=== PATIENT | male | born 1935 | race Caucasian/White ===

== ENCOUNTER 2017-03-02 15:23 | Observation (INO) ==
[2017-03-02] MEDS ORDERED: Nitroglycerin 0.4 MG TAB.SUBL SL ONE (15:58)
[2017-03-02] MEDS ORDERED: Aspirin 81 MG TAB.CHEW PO ONE (15:58)
--- NOTE | 2017-03-02 16:04 | Emergency Department Note ---
Disposition Clinical Impression: Chest pain, Elevated blood pressure reading with diagnosis of hypertension Disposition: Admitted As Inpatient Condition: Fair Referrals: Mark Harkins MD [Primary Care Provider] - Forms: ED Satisfaction Letter Chest Pain HPI - General Chief Complaint: ED Chest Pain Stated Complaint: CP/SOB Time Seen by Provider: 03/02/17 15:35 Source: patient Mode of arrival: ambulatory Limitations: no limitations Vital Signs Reviewed: Yes Nursing Notes Reviewed: Yes - History of Present Illness HPI Narrative: Patient is an 81-year-old white male with history of hypertension and hyperlipidemia who presents to the emergency room today with intermittent episodes of chest pain that began this morning at 8 AM. Patient complains of substernal pain that he describes like a pressure sensation that began this morning at 8 AM and has been waxing and waning throughout the day with no aggravating or alleviating factors that the patient can pinpoint. Patient states that pain is nonradiating, rating it as a 7 out of 10 in severity at this time associated with mild nausea and he experienced diaphoresis throughout the day with these episodes at home prior to arrival. Patient having no diaphoresis on presentation. Patient states that he feels nauseous and bloated in his abdomen is not having any abdominal or flank pain. Patient denies any fevers or chills, no recent upper respiratory symptoms cough or sore throat, no vomiting associated with nausea. Patient denies any bowel changes. Patient denies any lightheadedness or syncopal episodes prior to arrival. Patient states he has never had a heart attack in the past, has had a remote stress test and does not recall as to why it was done but thinks it was normal at the time and has had no further cardiac testing in the past. Patient at this time appears mildly anxious in regards to the symptoms, and concerned about the ongoing symptoms he has had throughout today. Patient thinks that the most recent episode that he has had which he feels currently started approximately 4 PM. Severity scale (1-10): 7 - Related Data Home Medications Medication Instructions Recorded Confirmed Aspirin Enteric Coated [Aspirin EC] 81 mg PO DAILY 03/02/17 03/02/17 Lisinopril/Hydrochlorothiazide 1 each PO DAILY 03/02/17 03/02/17 [Zestoretic 10-12.5 mg Tablet] Meloxicam [Mobic] 15 mg PO DAILY 03/02/17 03/02/17 Zolpidem [Ambien] 10 mg PO HS 03/02/17 03/02/17 Allergies Allergy/AdvReac Type Severity Reaction Status Date / Time No Known Allergies Allergy Verified 03/02/17 15:26 All systems ED: reviewed and negative except as stated. Constitutional: Denies: fever, chills Eyes: Denies: vision change ENT ED: Denies: throat pain Cardiovascular: Reports: chest pain (Substernal and nonradiating). Denies: palpitations, dyspnea on exertion, orthopnea, edema, syncope, paroxysmal nocturnal dyspnea Respiratory: Denies: cough, wheezes, hemoptysis, stridor, sputum production Gastrointestinal: Reports: nausea. Denies: abdominal pain, vomiting, diarrhea, hematemesis Genitourinary: Denies: urgency, dysuria, frequency Musculoskeletal: Denies: back pain, neck pain, arthralgia, myalgia Integumentary: Denies: rash Neurological: Denies: headache, weakness, numbness, paresthesias, abnormal gait Psychiatric: Denies: anxiety, depression Hematological/Lymphatic: Denies: easy bleeding, easy bruising Chest Pain PMH - Past Medical History Medical history: Reports: hyperlipidemia, hypertension Psychiatric history: Reports: panic disorder - Social History Smoking Status: Never smoker Alcohol use: Reports: none Drug use: Reports: none Physical Exam - General Limitations: no limitations General appearance: alert, in no apparent distress, other (mildly anxious) - Head Head exam: atraumatic, normocephalic - Eye Eye exam: Present: normal appearance, PERRL, EOMI - ENT ENT exam: normal exam, normal oropharynx, mucous membranes moist - Neck Neck exam: Present: normal inspection, full ROM. Absent: lymphadenopathy - Chest Chest inspection: Present: normal inspection, symmetric chest wall rise. Absent : tenderness - Respiratory Respiratory exam: Present: normal lung sounds bilaterally. Absent: respiratory distress, wheezes, stridor, prolonged expiratory phase - Cardiovascular Cardiovascular exam: Present: regular rate, normal rhythm, normal heart sounds - Abdominal Exam Abdominal exam: Present: soft, Non-Tender, normal bowel sounds. Absent: distention, guarding, rebound, rigidity - Rectal Exam Rectal exam: Present: deferred - Extremities Exam Extremities exam: Present: normal inspection, full ROM, normal capillary refill. Absent: tenderness, pedal edema - Back Exam Back exam: Present: normal inspection. Absent: tenderness, CVA tenderness (R), CVA tenderness (L) - Neurological Exam Neurological exam: Present: alert, oriented X3, CN II-XII intact, reflexes normal - Psychiatric Psychiatric exam: Present: normal affect, normal mood - Skin Skin exam: Present: warm, dry, normal color. Absent: cyanosis, diaphoresis Course Course Narrative: An 81-year-old white male who presents to the emergency department with substernal chest pressure radiating in a 7 out of 10 in severity associated with nausea. Patient's initial EKG showed a normal sinus rhythm with no acute ST-T wave changes. Currently obtaining IV including labs, portal chest x-ray, placed the patient on continuous cardiac monitoring and continuous pulse ox and will initiate aspirin and nitroglycerin here for pain and monitor blood pressure closely. He should at bedside has no signs of acute distress, no respiratory distress and vital signs are stable with the exception of some elevation in his blood pressure. Patient states he has been taking his blood pressure medication at home as prescribed. - Reevaluation(s) Reevaluation #1: On reevaluation following nitroglycerin trial and aspirin, patient is pain-free at this time. Patient denies any further pressure-like sensation to the substernal area of his chest. Blood pressure significantly improved is 135/101 on my reassessment. Patient resting comfortably. Awaiting remainder of labs at this time. I did discuss with the patient that more than likely we would be admitting him for further evaluation of chest pain as well as elevated blood pressure. Time: 16:57 Reevaluation #2: Family discussed with hospitalist at 1753, who accepted the patient for admission for further evaluation patient remains stable and vital signs are stable at this time resting comfortably and is chest pain-free. Chest X-Ray 03/02/17 15:58 IMPRESSION: Nodular density in the right upper lung. This would be better evaluated with CT of the chest D/ / Gifty Quinn MD / Gifty Quinn MD Interpreting Provider: Gifty Quinn MD Time: 17:54 Vital Signs Temperature 97.7 F 03/02/17 15:26 Pulse Rate 100 03/02/17 15:26 Respiratory Rate 16 03/02/17 15:26 Blood Pressure 188/123 03/02/17 15:26 O2 Sat by Pulse Oximetry 96 03/02/17 15:26 Temperature 97.7 F 03/02/17 15:26 Pulse Rate 68 03/02/17 17:15 Respiratory Rate 14 03/02/17 17:15 Blood Pressure 139/96 03/02/17 17:15 O2 Sat by Pulse Oximetry 98 03/02/17 17:15 Oxygen Delivery Oxygen Delivery Room Air Chest Pain - Medical Records Medical records reviewed: Yes I reviewed the patient's medical records. - Lab Data Lab results reviewed: Yes I reviewed the patient's lab results. Result diagrams: 03/02/17 16:20 03/02/17 16:20 Lab Results 03/02/17 03/02/17 03/02/17 Range/Units 16:20 16:20 16:20 WBC 5.1 (4.3-11.1) K/mcL RBC 4.39 (4.19-5.50) M/mcL Hgb 13.3 (12.9-16.9) g/dL Hct 38.4 (37.5-50.1) % MCV 87.5 (83.0-100.0) fL MCH 30.3 (28.0-33.3) pg MCHC 34.6 (31.6-35.5) g/dL RDW 13.2 (11.5-14.5) % Plt Count 210 (140-400) K/mcL MPV 9.7 (9.4-12.4) fL Immature Gran % 0.2 (0-4) % Seg Neutrophils % 62.0 % Lymphocytes % 28.6 % Monocytes % 7.6 % Eosinophils % 1.2 % Basophils % 0.4 % Neutrophils # 3.2 (1.6-8.9) K/mcL Lymphocytes # 1.5 (0.6-4.6) K/mcL Monocytes # 0.4 (0.0-1.3) K/mcL Eosinophils # 0.1 (0.0-0.6) K/mcL Basophils # 0.0 (0.0-0.2) K/mcL PT 11.1 (9.4-12.1) Seconds INR 1.0 APTT 29.3 (26.0-36.0) Seconds Sodium (136-145) mEq/L Potassium (3.5-4.5) mEq/L Chloride (98-109) mEq/L Carbon Dioxide (19-29) mEq/L BUN (8-26) mg/dL Creatinine (0.72-1.25) mg/dL Est GFR ( Amer) (> 60) Est GFR (Non-Af Amer) (> 60) BUN/Creatinine Ratio (6-26) Glucose (70-99) mg/dL Calculated Osmolality (280-300) Calcium (8.6-10.8) mg/dL Total Bilirubin (0.2-1.2) mg/dL Direct Bilirubin (0.0-0.5) mg/dL Indirect Bilirubin (0.0-1.2) mg/dL AST (5-34) Units/L ALT (0-55) Units/L Alkaline Phosphatase (38-126) Units/L Troponin I (0-0.03) ng/mL B-Natriuretic Peptide 35 (0-100) pg/mL Serum Total Protein (6.0-8.3) g/dL Albumin (3.5-5.0) g/dL Globulin (2.4-3.5) g/dL Albumin/Globulin Ratio (1.1-2.2) Lipase (8-78) Units/L 03/02/17 03/02/17 Range/Units 16:20 16:20 WBC (4.3-11.1) K/mcL RBC (4.19-5.50) M/mcL Hgb (12.9-16.9) g/dL Hct (37.5-50.1) % MCV (83.0-100.0) fL MCH (28.0-33.3) pg MCHC (31.6-35.5) g/dL RDW (11.5-14.5) % Plt Count (140-400) K/mcL MPV (9.4-12.4) fL Immature Gran % (0-4) % Seg Neutrophils % % Lymphocytes % % Monocytes % % Eosinophils % % Basophils % % Neutrophils # (1.6-8.9) K/mcL Lymphocytes # (0.6-4.6) K/mcL Monocytes # (0.0-1.3) K/mcL Eosinophils # (0.0-0.6) K/mcL Basophils # (0.0-0.2) K/mcL PT (9.4-12.1) Seconds INR APTT (26.0-36.0) Seconds Sodium 139 (136-145) mEq/L Potassium 3.5 (3.5-4.5) mEq/L Chloride 108 (98-109) mEq/L Carbon Dioxide 25 (19-29) mEq/L BUN 22 (8-26) mg/dL Creatinine 1.23 (0.72-1.25) mg/dL Est GFR ( Amer) > 60 (> 60) Est GFR (Non-Af Amer) 57 L (> 60) BUN/Creatinine Ratio 18 (6-26) Glucose 110 H (70-99) mg/dL Calculated Osmolality 292 (280-300) Calcium 9.3 (8.6-10.8) mg/dL Total Bilirubin 0.6 (0.2-1.2) mg/dL Direct Bilirubin 0.2 (0.0-0.5) mg/dL Indirect Bilirubin 0.4 (0.0-1.2) mg/dL AST 18 (5-34) Units/L ALT 15 (0-55) Units/L Alkaline Phosphatase 82 (38-126) Units/L Troponin I 0.00 (0-0.03) ng/mL B-Natriuretic Peptide (0-100) pg/mL Serum Total Protein 7.5 (6.0-8.3) g/dL Albumin 3.8 (3.5-5.0) g/dL Globulin 3.7 H (2.4-3.5) g/dL Albumin/Globulin Ratio 1.0 L (1.1-2.2) Lipase 22 (8-78) Units/L - Radiology Data Radiology results reviewed: Yes I reviewed the patient's radiology results. - EKG Data EKG attestation: Yes I reviewed and interpreted this EKG. EKG results narrative: Patient's EKG was interpreted by myself without benefit of formal cardiology interpretation showing a normal sinus rhythm at [address] or T-wave changes are appreciated patient with some nonspecific T-wave flattening noted in V6 otherwise within normal limits. Heart Score - Score History: Moderately Suspicious EKG: Non Specific repolarisation Disturbance Age: Greater than 65 Risk Factors: 1-2 risk factors Troponin: Less than normal limit HEART Score Total: 5
[2017-03-02] MEDS: 0.9 % Sodium Chloride 1,000 ML IVC SCH (16:34)
[2017-03-02 16:35] LABS: Basophils % 0.4 %; Eosinophils # 0.1 K/mcL (0.0-0.6); Eosinophils % 1.2 %; Hematocrit 38.4 % (37.5-50.1); Hemoglobin 13.3 g/dL (12.9-16.9); Immature Granulocytes % 0.2 % (0-4); Lymphocytes # 1.5 K/mcL (0.6-4.6); Lymphocytes % 28.6 %; Mean Corpuscular HGB Conc 34.6 g/dL (31.6-35.5); Mean Corpuscular Hemoglobin 30.3 pg (28.0-33.3); Mean Corpuscular Volume 87.5 fL (83.0-100.0); Mean Platelet Volume 9.7 fL (9.4-12.4); Monocytes # 0.4 K/mcL (0.0-1.3); Monocytes % 7.6 %; Neutrophils # 3.2 K/mcL (1.6-8.9); Platelet Count 210 K/mcL (140-400); Red Blood Count 4.39 M/mcL (4.19-5.50); Red Cell Distribution Width 13.2 % (11.5-14.5)
[2017-03-02 16:44] LABS: Prothrombin Time 11.1 Seconds (9.4-12.1)
[2017-03-02 16:47] LABS: Activated Partial Thrombo Time 29.3 Seconds (26.0-36.0)
[2017-03-02 16:51] LABS: Alanine Aminotransferase 15 Units/L (0-55); Albumin 3.8 g/dL (3.5-5.0); Alkaline Phosphatase 82 Units/L (38-126); Aspartate Amino Transferase 18 Units/L (5-34); BUN/Creatinine Ratio 18 (6-26); Bilirubin,Direct 0.2 mg/dL (0.0-0.5); Bilirubin,Indirect 0.4 mg/dL (0.0-1.2); Bilirubin,Total 0.6 mg/dL (0.2-1.2); Blood Urea Nitrogen 22 mg/dL (8-26); Calcium 9.3 mg/dL (8.6-10.8); Carbon Dioxide 25 mEq/L (19-29); Chloride 108 mEq/L (98-109); Globulin 3.7 g/dL (2.4-3.5); Glucose 110 mg/dL (70-99); Lipase 22 Units/L (8-78); Osmolality,Calculated 292 (280-300); Potassium 3.5 mEq/L (3.5-4.5); Sodium 139 mEq/L (136-145); Total Protein 7.5 g/dL (6.0-8.3); eGFR For African Americans > 60 (> 60); eGFR For Non-African Americans 57 (> 60)
[2017-03-02] MEDS ORDERED: Nitroglycerin 1 INCH/GM PACKET TP ONE (16:51)
[2017-03-02] MEDS ORDERED: Naloxone 0.4 MG/ML INJ IVP PRN (20:07)
[2017-03-02] MEDS ORDERED: Acetaminophen 325 MG TABLET PO PRN (20:07)
[2017-03-02] MEDS ORDERED: *HR* HYDROcodone/Acet 5/325 mg TABLET PO PRN (20:07)
[2017-03-02] MEDS ORDERED: *HR* Morphine 2 MG/ML SYRINGE IVP PRN (20:07)
[2017-03-02] MEDS ORDERED: Ondansetron 4 MG/2 ML VIAL IVP PRN (20:07)
[2017-03-02] MEDS ORDERED: Nitroglycerin 0.4 MG TAB.SUBL SL PRN (20:11)
--- NOTE | 2017-03-02 20:34 | Internal Med History&Physical ---
<Bhavna Jarquin - Last Filed: 03/02/17 20:53> Date of Encounter: 03/02/17 Time of Encounter: 20:00 Assessment and Plan (1) Chest pain Current visit: Yes Status: Acute 1 patient has been very intermittent chest pain which was relieved with nitroglycerin. First set of cardiac troponins are negative will continue to cycle troponins 2 continuous cardiac monitoring 3 aspirin 5obtain lipid profile 6cardiac echo 7 nitroglycerin as needed for chest pain 8 oxygen as needed to maintain SPO2 greater 92% 9 consult cardiology 10. Nothing by mouth After midnight Qualifiers: Chest pain type: unspecified Qualified Code(s): R07.9 - Chest pain, unspecified (2) HTN (hypertension) Current visit: Yes Status: Acute 1 patient's blood pressure is elevated on presentation. With nitroglycerin continue with nitroglycerin as needed 2 continue with home medications goal is to maintain an systolic less than 140 3 low sodium diet Qualifiers: Hypertension type: essential hypertension Qualified Code(s): I10 - Essential (primary) hypertension (3) DVT prophylaxis Current visit: Yes Status: Acute 1 [facility] Internal Medicine - H&P: HPI Chief complaint: cp Admitted From: Emergency Dept Plans for Post Hospital Care: Home History of present illness: Mr. Mcclain is a 81 year old male past medical history hypertension and hyperlipidemia anxiety arthritis GERD. The patient he woke up this morning with a midsternal chest pressure which which was nonradiating . No aggravating or relieving factors related pains about and he did have some nausea. The pain was intermittent throughout the morning and morning progressed chest pressure increased he began to experience diaphoresis nausea checked his blood pressure he stated was elevated as well as his heart rate he became concerned and presented to the ER for evaluation. Upon arrival to the ER records indicated pressure was elevated at 188/123 heart rate was 100 EKG did show sinus rhythm with no ST-T wave abnormality. He rates his chest pain at that time 02/16 Lab work was unremarkable troponin was 0. Patient was given aspirin and nitroglycerin chest pressure was relieved and blood pressure improved. He was admitted for further workup and evaluation. Presently the patient appears to be slightly anxious he denies any chest pain or shortness of breath at this time his lung sounds are clear heart sounds with S1-S2 no rubs gallops murmurs or clicks noted. Patient states he has been taking his blood pressure medication as prescribed. He has recently been initiated on the Ambien due to insomnia however no other changes He is hemodynamically stable at this time IV this case with who agrees with plan Past Med Surg Social Fam HX - Past Medical History Medical history: hyperlipidemia, hypertension Psychiatric history: anxiety, panic disorder - Social History Smoking Status: Never smoker Smokeless Tobacco Status: No Alcohol use: none Drug use: none - Family History Mother Living Status: Cause of : [place]? Father Living Status: Cause of : kidney failure Internal Medicine - H&P: Meds Aspirin Enteric Coated [Aspirin EC] 81 mg PO DAILY 03/02/17 [History] Lisinopril/Hydrochlorothiazide [Zestoretic 10-12.5 mg Tablet] 1 each PO DAILY [History] Meloxicam [Mobic] 15 mg PO DAILY 03/02/17 [History] Zolpidem [Ambien] 10 mg PO HS 03/02/17 [History] Allergies No Known Allergies Allergy (Verified 03/02/17 15:26) All Systems PM: A 10-system review of systems was performed and is negative for pertinent findings except as documented above in the HPI. - Cardiovascular Cardiovascular ROS IM: chest pain, diaphoresis, dyspnea - Respiratory Respiratory: no cough, no dyspnea, no wheezing, no excessive phlegm production - Gastrointestinal Gastrointestinal: heartburn, nausea - Musculoskeletal Musculoskeletal ROS IM: arthralgias, no numbness, no tingling - Neurological Neurological ROS: restless legs, no confusion, no convulsions, no focal weakness , no numbness, no tingling, no tremor(s) Additional comments: Insomnia - Constitutional Vitals: Temp Pulse Resp BP Pulse Ox 97.6 F 57 18 145/84 95 03/02/17 19:10 03/02/17 19:10 03/02/17 19:10 03/02/17 19:10 03/02/17 19:10 General appearance: Present: A&O X 3, answers questions appropriately - Head Head exam: Present: atraumatic, normocephalic - Eye Eye exam: Present: PERRL, conjuntiva pink, sclera anicteric Pupils: Present: PERRL - Neck Neck exam general surgery: Present: supple, trachea midline. Absent: lymphadenopathy - Respiratory Respiratory exam: Present: CTAB. Absent: accessory muscle use, rales, rhonchi, wheezes - Cardiovascular Cardiovascular exam: Present: RRR, +S1, +S2. Absent: diastolic murmur, gallop, rubs, systolic murmur - GI/Abdominal GI/Abdominal exam: Present: normal bowel sounds, soft, no peritoneal signs. Absent: distended, tenderness - Extremities Exam Extremities exam: Present: warm, radial pulses palpable and symetrical. Absent : calf tenderness, cyanotic, pedal edema - Neurological Exam Neurological exam: Present: CN II-XII intact, oriented X3, no focal deficits. Absent: pronater drift, facial droop, speech deficit - Skin Skin exam: Present: dry, intact Internal Med - H&P Results - Labs CBC & Chem 7: 03/02/17 16:20 03/02/17 16:20 - EKG Data EKG shows normal: sinus rhythm - EKG Data Prior EKG available for review: yes When compared to previous EKG: there is no significant change - Diagnostic Studies Other Images Additional comments: Chest X-Ray 03/02/17 15:58 IMPRESSION: Nodular density in the right upper lung. This would be better evaluated with CT of the chest D/ / Gifty Quinn MD / Gifty Quinn MD Interpreting Provider: Gifty Quinn MD <AnnikaDeborahsatishjulia R - Last Filed: 03/03/17 03:58> Date of Encounter: 03/02/17 Assessment and Plan (1) Pulmonary nodule, right Current visit: Yes Status: Acute Nodular density in the right upper lung - radiologist recommends CT chest for further evaluation. (2) Epigastric discomfort Current visit: Yes Status: Acute pt is on aspirin and meloxicam - suspect gastritis. Start PPI at discharge. Internal Medicine - H&P: HPI History of present illness: Mr. Mcclain is a 81 year old male All Systems PM: A 10-system review of systems was performed and is negative for pertinent findings except as documented above in the HPI. - Constitutional Vitals: Temp Pulse Resp BP Pulse Ox 97.8 F 61 18 121/74 95 03/03/17 03:09 03/03/17 03:09 03/03/17 03:09 03/03/17 03:09 03/03/17 03:09 Internal Med - H&P Results - Labs CBC & Chem 7: 03/03/17 00:43 03/03/17 00:43 Labs: Short CBC 03/03/17 Range/Units 00:43 WBC 4.2 L (4.3-11.1) K/mcL Hgb 11.3 L D (12.9-16.9) g/dL Hct 32.6 L (37.5-50.1) % Plt Count 177 (140-400) K/mcL Neutrophils # 1.8 (1.6-8.9) K/mcL BMP 03/03/17 00:43 Sodium 140 Potassium 3.5 Chloride 110 H Carbon Dioxide 24 BUN 20 Creatinine 1.13 Glucose 100 H Calcium 8.5 L Cardiac Enzymes 03/03/17 Range/Units 00:43 Troponin I 0.00 (0-0.03) ng/mL - Attending Attestation I performed history and physical examination of the patient and discussed management with the CLOTH PICKER / ANP. I reviewed the CLOTH PICKER / ANPs note and agree with documented findings and plan of care. 81 Y/M with h/o HTN, hyperlipidemia presents with substernal chest pressure. He reports abdominal / epigastric discomfort at that time and felt like that sensation was coming up. Denies radiation of the pain. At baseline he has left shoulder problems and is expected to go for surgery he has left shoulder pain, going to the left elbow at baseline pt is on aspirin and meloxicam. No chest pain at my evaluation. O/E: AAO x 3; cardiac regular rate and rhythm; lungs: Bilateral basal crackles. Abdomen soft with mild epigastric tenderness. EKG personally reviewed by me shows sinus rhythm with no acute ST-T changes. Chest x-ray reports Nodular density in the right upper lung. This would be better evaluated with CT of the chest. Troponin negative. A/P: Chest pain: Cardiac versus gastrointestinal. court monitor. Trend troponins. If troponins negative, cardiac stress testing. Start PPI, as the pt is on aspirin and meloxicam. Nodular density in the right upper lung - radiologist recommends CT chest for further evaluation.
[2017-03-03] MEDS: 0.9 % Sodium Chloride 1,000 ML IVC SCH ×2 (00:06→13:41)
[2017-03-03] MEDS ORDERED: Pantoprazole 40 MG VIAL IVP SCH (01:30)
[2017-03-03 02:05] LABS: Basophils % 0.5 %; Eosinophils # 0.1 K/mcL (0.0-0.6); Eosinophils % 2.1 %; Hematocrit 32.6 % (37.5-50.1); Immature Granulocytes % 0.2 % (0-4); Lymphocytes # 1.9 K/mcL (0.6-4.6); Mean Corpuscular HGB Conc 34.7 g/dL (31.6-35.5); Mean Corpuscular Volume 89.3 fL (83.0-100.0); Mean Platelet Volume 10.2 fL (9.4-12.4); Monocytes # 0.4 K/mcL (0.0-1.3); Monocytes % 10.5 %; Neutrophils # 1.8 K/mcL (1.6-8.9); Platelet Count 177 K/mcL (140-400); Red Blood Count 3.65 M/mcL (4.19-5.50); Red Cell Distribution Width 13.4 % (11.5-14.5); Segmented Neutrophils % 42.7 %
[2017-03-03 02:07] LABS: Hemoglobin 11.3 g/dL (12.9-16.9)
[2017-03-03 02:25] LABS: BUN/Creatinine Ratio 18 (6-26); Blood Urea Nitrogen 20 mg/dL (8-26); Calcium 8.5 mg/dL (8.6-10.8); Carbon Dioxide 24 mEq/L (19-29); Chloride 110 mEq/L (98-109); Chol/HDL Ratio 4.3 (0-4.9); Cholesterol 158 mg/dL (< 200); Glucose 100 mg/dL (70-99); HDL Cholesterol 37 mg/dL (40-59); LDL Cholesterol,Calculated 94 mg/dL (0-99); Osmolality,Calculated 293 (280-300); Potassium 3.5 mEq/L (3.5-4.5); Sodium 140 mEq/L (136-145); Triglycerides 135 mg/dL (< 150); eGFR For African Americans > 60 (> 60); eGFR For Non-African Americans > 60 (> 60)
[2017-03-03] MEDS ORDERED: Regadenoson 0.4 MG/5 ML SYRINGE IVP ONE (06:42)
[2017-03-03] MEDS ORDERED: *HR* Enoxaparin 40 MG/0.4 ML SYRINGE SQ SCH (07:00)
[2017-03-03] MEDS ORDERED: Aspirin Enteric Coated 81 MG Tablet PO SCH (09:00)
--- NOTE | 2017-03-03 10:15 | ECHO - Doppler Report ---
Echocardiogram Name: Hu Mcclain Date of Study: 03/03/2017 Date: 1935 Ht: 67.0 in Medical Record#: [id number] Age: 81 Wt: 157.0 lb Gender: Male BSA: 1.82 Order #: [id number] Location: [facility] Room #: 3B22 Reading Physician: Mariaelena Noriega DO Wad Lubricator: Binu Berger RN Ordering Physician: Bhavna Jarquin CNP Primary Physician: Mark Harkins MD Indications: Chest pain Impressions: LVEF 65%. Normal left ventricular size and systolic function. There is evidence of mild diastolic dysfunction of the left ventricle. Normal right ventricular size and function. Mild-moderate mitral regurgitation. Mild tricuspid regurgitation. No pulmonary hypertension. Left Ventricular Wall Motion: Rest Echo Findings All wall segments showed normal motion. Findings: Study Quality * Technically adequate exam. ECG Findings * Normal sinus rhythm. Left Ventricle * Normal LV size. * Basal septal hypertrophy. * LVEF 65%. * Mild left ventricular diastolic dysfunction. Right Ventricle * Normal right ventricular structure and function. Mitral Valve * Normal mitral valve structure. * No mitral stenosis. * Mild-moderate mitral regurgitation. Tricuspid Valve * Normal tricuspid valve structure. * Mild tricuspid regurgitation. * Estimated RA pressure is 3 mmHg. * Estimated RVSP is 29 mmHg. * No pulmonary hypertension. Pulmonic Valve * Pulmonic valve is not well visualized. * No pulmonic stenosis. * Trace pulmonic regurgitation. Pulmonary Artery * Pulmonary artery not well visualized. Aortic Valve * Trileaflet aortic valve. * Normal aortic valve structure. * No aortic stenosis. * No aortic regurgitation. Right Atrium * Normal right atrial size. Pericardium * There is no pericardial effusion present. Aorta * Normally sized aortic root. Left Atrium * Moderately dilated left atrium. Interatrial Septum * No evidence of PFO by color Doppler. IVC * Normal IVC dimensions and inspiratory collapse. History Hypertension 06/10/2007 a Previous Echo was performed. Measurements: BP: 121/ 74 2D Normal Values RVIDd: 3.30 cm <2.7 cm IVSd: 1.00 cm 0.6 - 1.0 cm LVIDd: 3.10 cm 3.7 - 5.6 cm LVPWd: 1.00 cm 0.6 - 1.1 cm LVIDs: 2.00 cm 1.5 - 3.6 cm LA: 3.60 cm 2.0 - 4.0cm %FS: 35.50 cm >25 % LVOT Diam: 1.90 cm LA volume: 71 Mitral Valve Peak E:.68 m/sec Peak A:.69 m/sec E/A Ratio:1 Peak E' Lat Dominguez:6.34 cm/s Peak E' Med Dominguez:6.73 cm/s E/E' Lat Ratio:10.7 E/E' Med Ratio:10.1 Tricuspid Valve TV Regurg Peak Grad: 26.00mmHg Updated by Mariaelena Noriega on 03/03/2017 10:09:03 AM electronically signed on 03/03/2017 10:10:27 AM with status of Final Wall Motion Joseph: 1=Normal, 2=Hypokinesis, 3=Akinesis, 4=Dyskinesis, 5=Aneurysmal, 6=Hyperkinetic, X=Not Visualized (Blank)=Missing
--- NOTE | 2017-03-03 14:33 | Electrocardiograph Report ---
[facility] Date: 2017-03-02 Pat Name: Hu Mcclain Department: 105 Room: 3B22 Gender: M [employer] Teacher: : 1935 Requested By: Samuel Tomlin Order Number: [id number] Reading MD: Mark Harkins MD Measurements Intervals [place] Rate: 97 P: 43 ND: 184 QRS: 37 QRSD: 85 T: 32 QT: 337 QTc: 392 Interpretive Statements SINUS RHYTHM NONSPECIFIC T-WAVE ABNORMALITY Electronically Signed On 03-03-2017 14:32:16 EDT by Mark Harkins MD
--- NOTE | 2017-03-03 15:10 | Nuclear Medicine Stress Report ---
Low Level Regadenoson Name: Hu Mcclain Date of Study: 03/03/2017 Date: 1935 Ht: 67.0 in Medical Record#: [id number] Age: 81 Wt: 157.0 lb Gender: Male Order #: [id number] Location: [facility] Room: [facility] Supervising Provider: Lana Alanis CNP Reading Physician: Mariaelena Noriega DO Ordering Physician: Suri Newsome CNP Primary Care Physician: Mark Harkins MD Stress Technologist: Lidia Mo FABRICATION TECHNICIAN, CCT [employer] Folding Machine Operator: Ozzie Mills Indications: Chest Pain Impression: Perfusion imaging is negative for ischemia or infarct. Low level exercise ECG is not diagnostic of ischemia. Patient complained of chest tightness at end exercise. Hypertensive blood pressure response. Normal gated EF. History: Hypertension Stress Test Summary: Stress Test Type: Pharmacologic Baseline Information: Initial Heart Rate: 69 Blood Pressure: 172/94 Stress Information: Test Terminated Due to (primary): As per protocol Maximum Blood Pressure: 210/94 Maximum Heart Rate: 141 Percent Maximum Heart Rate Achieved: 101 Double Product: 00637 METS Reached: 2.1 Symptoms: Nausea, Chest tightness Nuclear Summary: SPECT myocardial perfusion imaging using [id number] Sestamibi given intravenously was performed at rest and following cardiac stress testing. The resting images were obtained following initial dose of 10.6 mCi. Following stress an additional dose of 30.2 mCi was given at peak exercise or 30 seconds post regadenoson infusion. Medication Given: Time Medication Dose Units Route Findings: Stress Note * Resting ECG demonstrated normal sinus rhythm. * Patient had chest tightness during stress. * Rare PVCs noted during stress. * Peak low-level ECG demonstrates [address] depressions in the inferior and lateral leads. These findings are not diagnostic of ischemia. Hemodynamic responses * The patient demonstrated a hypertensive blood pressure response. Study Quality * Study quality is good. Gated EF > 70% * Gated EF > 70%. Left Ventricle * The left ventricle is not dilated. TID * No evidence of transient ischemic dilatation. Lung Uptake * There is no evidence of increase lung uptake. NORMALS * Normal wall motion. * Normal segmental perfusion in stress. * Normal Segmental Perfusion in rest. Updated by Mariaelena Noriega on 03/03/2017 3:03:50 PM electronically signed on 03/03/2017 3:06:39 PM with status of Final
[2017-03-03 15:22] VITALS: BP 177/80
--- NOTE | 2017-03-03 16:30 | Discharge Summary ---
Date of Encounter: 03/03/17 Time of Encounter: 12:20 - Discharge Diagnosis (1) Chest pain Priority: Primary Status: Acute Comments: Patient reports midsternal chest pressure that began at 1430 yesterday. He was diaphoretic while he was outside working. He went inside and found out that he had hypertension and tachycardia. He is not remember what his blood pressure reading was the top number was in the 100s as was his pulse. He reports increased stress recently patient states he is to have a shoulder replacement next week and had multiple phone calls yesterday and could not find out any answers to whether he was supposed to continue his medications are stopped his medications. He said he became agitated due to the confusion and said that is when the chest pain began. Currently he is pain-free and he denies any shortness of breath. He appeared to become agitated with the process today. He said that he just wanted to come to the emergency room and get some medicine for his blood pressure go home and he had no idea what all was involved with telling someone that he had chest pain. In the emergency department his chest pain was relieved with nitroglycerin and his troponins were negative. Echocardiogram shows LVEF of 65%, normal systolic function, mild diastolic dysfunction, mild to moderate MR, mild TR, no pulmonary hypertension. Stress test today was negative for ischemia or infarct. Low level exercise ECG is not diagnostic of ischemia. Patient has been walking in the hallway today and denies chest pain or shortness of breath with exertion. Qualifiers: Chest pain type: unspecified Qualified Code(s): R07.9 - Chest pain, unspecified (2) Elevated blood pressure reading with diagnosis of hypertension Priority: Secondary Status: Chronic Comments: Patient was hypertensive on arrival. He says he had a hypertensive blood pressure readings at home with home machine. He said he was very agitated and had been outside working. Patient has been normotensive since arrival. Continue home blood pressure medications and follow-up with primary care physician for recheck and possible addition of medication for hypertension. (3) HTN (hypertension) Priority: Secondary Status: Acute Comments: Plan as above Qualifiers: Hypertension type: essential hypertension Qualified Code(s): I10 - Essential (primary) hypertension (4) Pulmonary nodule, right Priority: Secondary Status: Chronic Comments: I will send patient home with order for CAT scan to be done outpatient. Results to primary care physician. (5) Epigastric discomfort Priority: Secondary Status: Resolved Comments: Patient denies. (6) DVT prophylaxis Priority: Secondary Status: Acute Comments: Subcutaneous Lovenox - Discharge Medications Home Medications: Aspirin Enteric Coated [Aspirin EC] 81 mg PO DAILY 03/02/17 [History] Lisinopril/Hydrochlorothiazide [Zestoretic 10-12.5 mg Tablet] 1 each PO DAILY [History] Meloxicam [Mobic] 15 mg PO DAILY 03/02/17 [History] Zolpidem [Ambien] 10 mg PO HS 03/02/17 [History] Allergies/Adverse Reactions: Allergies No Known Allergies Allergy (Verified 03/02/17 15:26) Procedures/tests Complete & Pending: Procedures Performed prior 72 hours Category Date Time Status NM nelson perf SPECT multi [NM] Routine Exams 03/03/17 01:30 Taken EV echocardiogram Routine Y 03/03/17 20:10 Completed SP exercise nuclear stress Routine Y 03/03/17 07:30 Completed Date of admission: 03/02/17 18:18 Primary care physician: Mark Harkins MD Discharging clinician: Gail Alcocer Anticipated date of discharge: 03/03/17 - Patient Status Disposition: Home, Self-Care Condition: Good Functional capacity at discharge: independent ambulation Overall status at discharge: patient is back to baseline - Ambulatory Orders Ambulatory Orders: CT chest wo con [CT] Time Frame: 3 Days, Facility: [facility] , Location: Radiology - Discharge Instructions Follow Up With: Mark Harkins MD [Primary Care Provider] - - Diet and Activity Activity: increase activity as tolerated, resume usual activities as tolerated Diet: advance to your usual diet Hospital course: Mr. Mcclain is a 81 year old male who presented to the emergency room yesterday for intermittent midsternal chest pain that began at 8 AM. It is intermittent and substernal. He describes it as a pressure. Nothing makes it better and nothing makes it worse. Pain did not radiate and he states it was a 10/10 in severity, mild nausea, and diaphoresis even though he was outside working at onset of pain. Patient is to have shoulder surgery in [place] next week and he was having some difficulty understanding what medications he was to stop prior to surgery and he was forced to make multiple phone calls to find out what to do. He says that is when the chest pain became the worst. He is pain-free today. Patient says yesterday at onset of chest pain he went inside to take his blood pressure and states that all 3 of his numbers, systolic , diastolic, pulse were above 100. Patient was hypertensive 160s over 120s when he got here, and has been well controlled since. He will continue his home medications. Echocardiogram today shows LVEF of 65%, normal systolic function, mild diastolic dysfunction, mild to moderate MR, mild TR, no pulmonary hypertension. His stress test was negative for ischemia. His vital signs been stable, he has been pain-free, his troponins were negative. Patient is stable for discharge. - Time Spent with Patient Total time spent providing and/or coordinating discharge services: Less than 30 minutes - Constitutional Vitals: Temp Pulse Resp BP Pulse Ox 97.8 F 79 15 177/80 97 03/03/17 15:21 03/03/17 15:21 03/03/17 15:21 03/03/17 15:21 03/03/17 15:21 General appearance: Present: cooperative, A&O X 3, pleasant, answers questions appropriately - Head Head exam: Present: normal inspection - Eye Eye exam: Present: normal appearance, periorbital tenderness, conjuntiva pink - ENT ENT exam: Present: mucous membranes moist, normal exam - Neck Neck exam general surgery: Present: normal inspection. Absent: lymphadenopathy , tenderness - Respiratory Respiratory exam: Present: CTAB. Absent: rales, rhonchi, stridor, wheezes - Cardiovascular Cardiovascular exam: Present: RRR, +S1, +S2. Absent: diastolic murmur, systolic murmur - GI/Abdominal GI/Abdominal exam: Present: normal bowel sounds, soft. Absent: distended, hepatomegaly, tenderness - Extremities Exam Extremities exam: Present: normal capillary refill, normal inspection, warm, radial pulses palpable and symetrical. Absent: pedal edema, tenderness - Neurological Exam Neurological exam: Present: alert, normal gait, oriented X3. Absent: no focal deficits, strengths equal and symetr throughout, pronater drift, facial droop, speech deficit
== END 2017-03-03 17:13 | disposition home or self-care (01) ==
LOC: EMEROO 15:23 → 3BNU 15:23
PROVIDERS: ADMIT Nurse Practitioner Family; ATTEND Registered Nurse

== ENCOUNTER 2019-06-03 22:18 | Observation (INO) ==
[2019-06-03] MEDS ORDERED: 0.9 % Sodium Chloride 1,000 ML IVC ONE (22:52)
[2019-06-03 23:33] LABS: Basophils % 0.1 %; Eosinophils % 0.1 %; Hematocrit 35.9 % (37.5-50.1); Hemoglobin 11.9 g/dL (12.9-16.9); Immature Granulocytes % 0.4 % (0-4); Lymphocytes # 0.4 K/mcL (0.6-4.6); Lymphocytes % 5.2 %; Mean Corpuscular HGB Conc 33.1 g/dL (31.6-35.5); Mean Corpuscular Hemoglobin 30.1 pg (28.0-33.3); Mean Corpuscular Volume 90.9 fL (83.0-100.0); Mean Platelet Volume 9.8 fL (9.4-12.4); Monocytes # 0.5 K/mcL (0.0-1.3); Neutrophils # 6.7 K/mcL (1.6-8.9); Platelet Count 172 K/mcL (140-400); Red Blood Count 3.95 M/mcL (4.19-5.50); Red Cell Distribution Width 13.2 % (11.5-14.5); Segmented Neutrophils % 88.2 %; White Blood Count 7.6 K/mcL (4.3-11.1)
[2019-06-03 23:40] LABS: INR 1.1
[2019-06-03 23:43] LABS: Activated Partial Thrombo Time 28.3 Seconds (26.0-36.0)
[2019-06-03 23:51] LABS: Alanine Aminotransferase 15 Units/L (7-52); Albumin 4.1 g/dL (3.5-5.7); Albumin/Globulin Ratio 1.2 (1.1-2.2); Alkaline Phosphatase 66 Units/L (34-104); Aspartate Amino Transferase 16 Units/L (13-39); BUN/Creatinine Ratio 18 (6-26); Bilirubin,Direct 0.1 mg/dL (0.0-0.2); Bilirubin,Total 0.8 mg/dL (0.3-1.0); Blood Urea Nitrogen 24 mg/dL (8-23); Calcium 8.9 mg/dL (8.6-10.3); Carbon Dioxide 22 mEq/L (23-29); Chloride 105 mEq/L (98-107); Creatine Kinase 250 Units/L (30-223); Globulin 3.4 g/dL (2.4-3.5); Glucose 127 mg/dL (70-105); Osmolality,Calculated 286 (280-300); Potassium 3.9 mEq/L (3.5-5.1); Sodium 135 mEq/L (136-145); Total Protein 7.5 g/dL (6.4-8.9); eGFR For African Americans > 60 (> 60); eGFR For Non-African Americans 50 (> 60)
[2019-06-04] MEDS ORDERED: 0.9 % Sodium Chloride 1,000 ML IVC ONE (00:02)
--- NOTE | 2019-06-04 00:02 | Emergency Department Note ---
Disposition Clinical Impression: Fever Qualifiers: Fever type: unspecified Qualified Code(s): R50.9 - Fever, unspecified Disposition: Admitted As Inpatient Condition: Fair Time of Disposition: 02:53 General Adult HPI - General Chief complaint: ED Fever Stated complaint: Fever, Chills Time Seen by Provider: 06/03/19 22:48 Source: patient Limitations: no limitations Nursing Notes Reviewed: Yes Vital Signs Reviewed: Yes - History of Present Illness Pain Scale: 0 - Related Data Home Medications Medication Instructions Recorded Confirmed Lisinopril/Hydrochlorothiazide 1 tab PO DAILY 07/15/18 06/04/19 [Zestoretic 20-25 mg Tablet] Cholecalciferol (Vitamin D3) 1,000 unit PO DAILY 04/13/19 04/13/19 [Vitamin D] Requip 25 PO HS 06/04/19 Allergies Allergy/AdvReac Type Severity Reaction Status Date / Time carbidopa [From Sinemet] Allergy Nausea Verified 06/03/19 22:23 levodopa [From Sinemet] Allergy Nausea Verified 06/03/19 22:23 Past Medical History - Past Medical History Medical history: Reports: arthritis, GERD, hyperlipidemia, hypertension Surgical history: Reports: other Psychiatric history: Reports: anxiety - Social History Smoking Status: Never smoker Smokeless Tobacco Status: No Alcohol use: Reports: none Drug use: Reports: none Physical Exam - General Limitations: no limitations General appearance: alert Course Vital Signs Temperature 100.8 F H 06/03/19 22:20 Pulse Rate 107 06/03/19 22:20 Respiratory Rate 16 06/03/19 22:20 Blood Pressure 159/72 06/03/19 22:20 O2 Sat by Pulse Oximetry 96 06/03/19 22:20 Temperature 99.0 F 06/04/19 02:50 Pulse Rate 90 06/04/19 01:34 Respiratory Rate 18 06/04/19 02:50 Blood Pressure 121/61 06/04/19 02:50 O2 Sat by Pulse Oximetry 94 06/04/19 01:34 Oxygen Delivery Oxygen Delivery Room Air Medical Decision Making - Lab Data Result diagrams: 06/03/19 23:16 06/03/19 23:16 Lab Results 06/03/19 06/03/19 06/03/19 Range/Units 23:16 23:16 23:16 WBC 7.6 (4.3-11.1) K/mcL RBC 3.95 L (4.19-5.50) M/mcL Hgb 11.9 L (12.9-16.9) g/dL Hct 35.9 L (37.5-50.1) % MCV 90.9 (83.0-100.0) fL MCH 30.1 (28.0-33.3) pg MCHC 33.1 (31.6-35.5) g/dL RDW 13.2 (11.5-14.5) % Plt Count 172 (140-400) K/mcL MPV 9.8 (9.4-12.4) fL Immature Gran % 0.4 (0-4) % Seg Neutrophils % 88.2 % Lymphocytes % 5.2 % Monocytes % 6.0 % Eosinophils % 0.1 % Basophils % 0.1 % Neutrophils # 6.7 (1.6-8.9) K/mcL Lymphocytes # 0.4 L (0.6-4.6) K/mcL Monocytes # 0.5 (0.0-1.3) K/mcL Eosinophils # 0.0 (0.0-0.6) K/mcL Basophils # 0.0 (0.0-0.2) K/mcL PT 12.0 (9.4-12.1) Seconds INR 1.1 APTT 28.3 (26.0-36.0) Seconds Sodium 135 L (136-145) mEq/L Potassium 3.9 (3.5-5.1) mEq/L Chloride 105 (98-107) mEq/L Carbon Dioxide 22 L (23-29) mEq/L BUN 24 H (8-23) mg/dL Creatinine 1.36 H (0.70-1.30) mg/dL Est GFR ( Amer) > 60 (> 60) Est GFR (Non-Af Amer) 50 L (> 60) BUN/Creatinine Ratio 18 (6-26) Glucose 127 H (70-105) mg/dL Calculated Osmolality 286 (280-300) Lactic Acid (0.5-2.2) mmol/L Calcium 8.9 (8.6-10.3) mg/dL Total Bilirubin 0.8 (0.3-1.0) mg/dL Direct Bilirubin 0.1 (0.0-0.2) mg/dL AST 16 (13-39) Units/L ALT 15 (7-52) Units/L Alkaline Phosphatase 66 (34-104) Units/L Creatine Kinase 250 H (30-223) Units/L Serum Total Protein 7.5 (6.4-8.9) g/dL Albumin 4.1 (3.5-5.7) g/dL Globulin 3.4 (2.4-3.5) g/dL Albumin/Globulin Ratio 1.2 (1.1-2.2) Urine Color (Yellow) Urine Clarity (Clear) Urine pH (5.0-8.0) pH Units Ur Specific [place] (1.010-1.025) Urine Protein (Neg-Trace) mg/dL Urine Glucose (UA) (Normal) mg/dL Urine Ketones (Negative) mg/dL Urine Blood (Negative) Urine Nitrite (Negative) Urine Bilirubin (Negative) Urine Urobilinogen (Normal) mg/dL Ur Leukocyte Esterase (Negative) Ur Culture Indicated? (NO) 06/03/19 06/04/19 Range/Units 23:16 00:29 WBC (4.3-11.1) K/mcL RBC (4.19-5.50) M/mcL Hgb (12.9-16.9) g/dL Hct (37.5-50.1) % MCV (83.0-100.0) fL MCH (28.0-33.3) pg MCHC (31.6-35.5) g/dL RDW (11.5-14.5) % Plt Count (140-400) K/mcL MPV (9.4-12.4) fL Immature Gran % (0-4) % Seg Neutrophils % % Lymphocytes % % Monocytes % % Eosinophils % % Basophils % % Neutrophils # (1.6-8.9) K/mcL Lymphocytes # (0.6-4.6) K/mcL Monocytes # (0.0-1.3) K/mcL Eosinophils # (0.0-0.6) K/mcL Basophils # (0.0-0.2) K/mcL PT (9.4-12.1) Seconds INR APTT (26.0-36.0) Seconds Sodium (136-145) mEq/L Potassium (3.5-5.1) mEq/L Chloride (98-107) mEq/L Carbon Dioxide (23-29) mEq/L BUN (8-23) mg/dL Creatinine (0.70-1.30) mg/dL Est GFR ( Amer) (> 60) Est GFR (Non-Af Amer) (> 60) BUN/Creatinine Ratio (6-26) Glucose (70-105) mg/dL Calculated Osmolality (280-300) Lactic Acid 0.6 (0.5-2.2) mmol/L Calcium (8.6-10.3) mg/dL Total Bilirubin (0.3-1.0) mg/dL Direct Bilirubin (0.0-0.2) mg/dL AST (13-39) Units/L ALT (7-52) Units/L Alkaline Phosphatase (34-104) Units/L Creatine Kinase (30-223) Units/L Serum Total Protein (6.4-8.9) g/dL Albumin (3.5-5.7) g/dL Globulin (2.4-3.5) g/dL Albumin/Globulin Ratio (1.1-2.2) Urine Color Yellow (Yellow) Urine Clarity Clear (Clear) Urine pH 7.0 (5.0-8.0) pH Units Ur Specific [place] 1.021 (1.010-1.025) Urine Protein Negative (Neg-Trace) mg/dL Urine Glucose (UA) Normal (Normal) mg/dL Urine Ketones Negative (Negative) mg/dL Urine Blood Negative (Negative) Urine Nitrite Negative (Negative) Urine Bilirubin Negative (Negative) Urine Urobilinogen Normal (Normal) mg/dL Ur Leukocyte Esterase Negative (Negative) Ur Culture Indicated? NO (NO) Attestation Statement - Attestation Attestation: I examined this patient and my medical decision-making was reviewed with the Resident Physician. I agree with the documented findings, disposition and treatment plan as described except to the extent set forth below. Patient to the ED with a chief complaint of not feeling well. Febrile with right wrist. Onset this evening. Patient was outside working in the heat which she does every day. He states he began to chills so they went inside is urgently worse. Still does not feel well. Called a family member. His temp was 102. On arrival here he is febrile. Heart regular lungs clear. No rashes. No tenderness over the cervical thoracic or lumbar spines. He is awake alert and oriented. Mentating at baseline per family member who is present in the room. Plan. Septic workup. IV fluids. Tylenol. No infectious source found. Unclear. No pneumonia. He is having no cough. No congestion. No vomiting. No diarrhea. No urinary symptoms. No back pain. No headache. No neck stiffness. He has no source of infection. Is unclear at this time with this infectious process versus heat exhaustion. Patient be admitted for observation. Blood culture sent. Chest X-Ray 06/03/19 22:51 IMPRESSION: Chronic pulmonary changes without focal airspace consolidation. D/ / Girish Heard / Girish Heard Interpreting Provider: Girish Heard
--- NOTE | 2019-06-04 00:09 | Emergency Department Note ---
Disposition Clinical Impression: Sepsis Qualifiers: Sepsis type: sepsis due to unspecified organism Qualified Code(s): A41.9 - Sepsis, unspecified organism Disposition: Admitted As Inpatient Condition: Good Referrals: Mark Harkins MD [Primary Care Provider] - Forms: ED Satisfaction Letter Time of Disposition: 02:34 General Adult HPI - General Chief complaint: ED Fever Stated complaint: Fever, Chills Time Seen by Provider: 06/03/19 22:48 Source: patient, family Mode of arrival: private vehicle Limitations: no limitations Nursing Notes Reviewed: Yes Vital Signs Reviewed: Yes - History of Present Illness HPI Narrative: This is an 83-year-old male who presents emergency Department with his daughter for evaluation of Rigors. Patient states he had been outside working all day, shoveling gravel, working with story and about 1900 and started feeling incredibly cold while he was outside working. He states the feeling came on all of a sudden and he started shivering. He states he went into the house to cool off however it was too cold and there is a came back outside. He states he was not sweating but he felt hot so he called his daughter to come and see him. Daughter took temperature at home and it was 101 so they came to the emergency department for evaluation. He states that earlier in the day he started to be nauseous and he took a drink it went away so he is Working and the nausea was intermittent and is now resolved He does endorse feeling lightly dizzy during the day but it passed quickly and denies this now. Patient states he works outside everyday, he works in the yard and shoveling gravel. He does state he was outside all day from the morning until he went inside, he does state that he did take a couple breaks to get some water. Patient denies recent illness. He states when he woke up this morning he fell at his baseline. No fevers or chills prior to this instance, no runny nose, no coughing, shortness of breath, abdominal pain. He states he has not had any confusion. Patient/urination was just prior to arrival, urine was clear. He denies any darkening of urine. He has been able to eat and drink without nausea Onset (ago): hour(s) Pain Scale: 0 Consistency: constant, Improving Improves with: nothing Worsens with: nothing Associated symptoms: Reports: fever/chills, nausea/vomiting. Denies: confusion, chest pain, cough, diaphoresis, headaches, loss of appetite, malaise, rash, seizure, shortness of breath, syncope, weakness Treatments Prior to Arrival: none - Related Data Home Medications Medication Instructions Recorded Confirmed Lisinopril/Hydrochlorothiazide 1 tab PO DAILY 07/15/18 04/13/19 [Zestoretic 20-25 mg Tablet] Cholecalciferol (Vitamin D3) 1,000 unit PO DAILY 04/13/19 04/13/19 [Vitamin D] Requip 25 PO HS 06/04/19 Allergies Allergy/AdvReac Type Severity Reaction Status Date / Time carbidopa [From Sinemet] Allergy Nausea Verified 06/03/19 22:23 levodopa [From Sinemet] Allergy Nausea Verified 06/03/19 22:23 All systems ED: reviewed and negative except as stated. Review of Systems: As Per HPI Constitutional: Reports: fever, chills. Denies: weakness, weight change ENT ED: Denies: ear pain, throat pain, dental pain, congestion Cardiovascular: Denies: chest pain, palpitations Respiratory: Denies: cough, dyspnea, wheezes, stridor, sputum production Gastrointestinal: Reports: nausea. Denies: abdominal pain, vomiting Musculoskeletal: Denies: back pain, neck pain Integumentary: Denies: rash, abrasion Neurological: Denies: headache, weakness, numbness, paresthesias, confusion Past Medical History - Past Medical History Attestation: Yes The following information was validated with the patient. Source: patient Medical history: Reports: arthritis, GERD, hyperlipidemia, hypertension Surgical history: Reports: other Psychiatric history: Reports: anxiety - Social History Smoking Status: Never smoker Smokeless Tobacco Status: No Alcohol use: Reports: none Drug use: Reports: none Physical Exam - General Limitations: no limitations General appearance: alert, in no apparent distress - Head Head exam: atraumatic, normocephalic, normal inspection - Eye Eye exam: Present: normal appearance - ENT ENT exam: mucous membranes moist - Neck Neck exam: Present: normal inspection, full ROM, trachea midline - Chest Chest inspection: Present: normal inspection, symmetric chest wall rise - Respiratory Respiratory exam: Present: normal lung sounds bilaterally - Cardiovascular Cardiovascular exam: Present: regular rate, normal rhythm, normal heart sounds, systolic murmur - Extremities Exam Extremities exam: Present: normal inspection, full ROM. Absent: tenderness, pedal edema - Neurological Exam Neurological exam: Present: alert, oriented X3 - Psychiatric Psychiatric exam: Present: normal affect, normal mood - Skin Skin exam: Present: warm, dry, intact, normal color Course Course Narrative: Well-developed male in no acute distress. Patient does have multiple with close, he does state that he feels cold. He is alert and oriented 3, GCS 15. He is slightly tachycardic elevated temperature of 100.8, normotensive. EKG upon arrival reveals a sinus rhythm with a rate of 97 bpm, MA interval 181 ms, QTC 401 ms. Physical exam is unremarkable next Heat injury versus infectious etiology. We will obtain labs, chest x-ray, UA. We will give a liter of fluids, Tylenol and monitor. 0130-patient resting quietly, is no longer suffering from rigors, labs returned unremarkable, there is a slight aching I, CK slightly elevated at 250. UA without evidence of infection. Symptoms were consistent with infectious etiology. Patient does state he had a sore in his gumline of his upper mouth, evaluation without evidence of infection to the oral Cozaar, gingiva. I did discuss with patient observation in the hospital, blood cultures related to the febrile status, fever of unknown origin. He is agreeable to plan of care. We will obtain blood cultures, plan admission to the hospital. 0230-spoke with hospitalist Dr. Brito, agreeable to except for inpatient admission. We will transition care at this time. Vital Signs Temperature 100.8 F H 06/03/19 22:20 Pulse Rate 107 06/03/19 22:20 Respiratory Rate 16 06/03/19 22:20 Blood Pressure 159/72 06/03/19 22:20 O2 Sat by Pulse Oximetry 96 06/03/19 22:20 Temperature 100.8 F H 06/03/19 22:20 Pulse Rate 90 06/04/19 01:34 Respiratory Rate 20 06/04/19 01:34 Blood Pressure 114/61 06/04/19 01:34 O2 Sat by Pulse Oximetry 94 06/04/19 01:34 Oxygen Delivery Oxygen Delivery Room Air Medical Decision Making - Lab Data Result diagrams: 06/03/19 23:16 06/03/19 23:16 Lab Results 06/03/19 06/03/19 06/03/19 Range/Units 23:16 23:16 23:16 WBC 7.6 (4.3-11.1) K/mcL RBC 3.95 L (4.19-5.50) M/mcL Hgb 11.9 L (12.9-16.9) g/dL Hct 35.9 L (37.5-50.1) % MCV 90.9 (83.0-100.0) fL MCH 30.1 (28.0-33.3) pg MCHC 33.1 (31.6-35.5) g/dL RDW 13.2 (11.5-14.5) % Plt Count 172 (140-400) K/mcL MPV 9.8 (9.4-12.4) fL Immature Gran % 0.4 (0-4) % Seg Neutrophils % 88.2 % Lymphocytes % 5.2 % Monocytes % 6.0 % Eosinophils % 0.1 % Basophils % 0.1 % Neutrophils # 6.7 (1.6-8.9) K/mcL Lymphocytes # 0.4 L (0.6-4.6) K/mcL Monocytes # 0.5 (0.0-1.3) K/mcL Eosinophils # 0.0 (0.0-0.6) K/mcL Basophils # 0.0 (0.0-0.2) K/mcL PT 12.0 (9.4-12.1) Seconds INR 1.1 APTT 28.3 (26.0-36.0) Seconds Sodium 135 L (136-145) mEq/L Potassium 3.9 (3.5-5.1) mEq/L Chloride 105 (98-107) mEq/L Carbon Dioxide 22 L (23-29) mEq/L BUN 24 H (8-23) mg/dL Creatinine 1.36 H (0.70-1.30) mg/dL Est GFR ( Amer) > 60 (> 60) Est GFR (Non-Af Amer) 50 L (> 60) BUN/Creatinine Ratio 18 (6-26) Glucose 127 H (70-105) mg/dL Calculated Osmolality 286 (280-300) Lactic Acid (0.5-2.2) mmol/L Calcium 8.9 (8.6-10.3) mg/dL Total Bilirubin 0.8 (0.3-1.0) mg/dL Direct Bilirubin 0.1 (0.0-0.2) mg/dL AST 16 (13-39) Units/L ALT 15 (7-52) Units/L Alkaline Phosphatase 66 (34-104) Units/L Creatine Kinase 250 H (30-223) Units/L Serum Total Protein 7.5 (6.4-8.9) g/dL Albumin 4.1 (3.5-5.7) g/dL Globulin 3.4 (2.4-3.5) g/dL Albumin/Globulin Ratio 1.2 (1.1-2.2) Urine Color (Yellow) Urine Clarity (Clear) Urine pH (5.0-8.0) pH Units Ur Specific [place] (1.010-1.025) Urine Protein (Neg-Trace) mg/dL Urine Glucose (UA) (Normal) mg/dL Urine Ketones (Negative) mg/dL Urine Blood (Negative) Urine Nitrite (Negative) Urine Bilirubin (Negative) Urine Urobilinogen (Normal) mg/dL Ur Leukocyte Esterase (Negative) Ur Culture Indicated? (NO) 06/03/19 06/04/19 Range/Units 23:16 00:29 WBC (4.3-11.1) K/mcL RBC (4.19-5.50) M/mcL Hgb (12.9-16.9) g/dL Hct (37.5-50.1) % MCV (83.0-100.0) fL MCH (28.0-33.3) pg MCHC (31.6-35.5) g/dL RDW (11.5-14.5) % Plt Count (140-400) K/mcL MPV (9.4-12.4) fL Immature Gran % (0-4) % Seg Neutrophils % % Lymphocytes % % Monocytes % % Eosinophils % % Basophils % % Neutrophils # (1.6-8.9) K/mcL Lymphocytes # (0.6-4.6) K/mcL Monocytes # (0.0-1.3) K/mcL Eosinophils # (0.0-0.6) K/mcL Basophils # (0.0-0.2) K/mcL PT (9.4-12.1) Seconds INR APTT (26.0-36.0) Seconds Sodium (136-145) mEq/L Potassium (3.5-5.1) mEq/L Chloride (98-107) mEq/L Carbon Dioxide (23-29) mEq/L BUN (8-23) mg/dL Creatinine (0.70-1.30) mg/dL Est GFR ( Amer) (> 60) Est GFR (Non-Af Amer) (> 60) BUN/Creatinine Ratio (6-26) Glucose (70-105) mg/dL Calculated Osmolality (280-300) Lactic Acid 0.6 (0.5-2.2) mmol/L Calcium (8.6-10.3) mg/dL Total Bilirubin (0.3-1.0) mg/dL Direct Bilirubin (0.0-0.2) mg/dL AST (13-39) Units/L ALT (7-52) Units/L Alkaline Phosphatase (34-104) Units/L Creatine Kinase (30-223) Units/L Serum Total Protein (6.4-8.9) g/dL Albumin (3.5-5.7) g/dL Globulin (2.4-3.5) g/dL Albumin/Globulin Ratio (1.1-2.2) Urine Color Yellow (Yellow) Urine Clarity Clear (Clear) Urine pH 7.0 (5.0-8.0) pH Units Ur Specific [place] 1.021 (1.010-1.025) Urine Protein Negative (Neg-Trace) mg/dL Urine Glucose (UA) Normal (Normal) mg/dL Urine Ketones Negative (Negative) mg/dL Urine Blood Negative (Negative) Urine Nitrite Negative (Negative) Urine Bilirubin Negative (Negative) Urine Urobilinogen Normal (Normal) mg/dL Ur Leukocyte Esterase Negative (Negative) Ur Culture Indicated? NO (NO)
[2019-06-04 01:09] LABS: Bilirubin,Urine Negative (Negative); Blood,Urine Negative (Negative); Clarity,Urine Clear (Clear); Color,Urine Yellow (Yellow); Glucose,Urine (UA) Normal (Normal); Ketones,Urine Negative (Negative); Leukocyte Esterase,Urine Negative (Negative); Nitrite,Urine Negative (Negative); Protein,Urine Negative (Neg-Trace); Specific Gravity,Urine 1.021 (1.010-1.025); Urobilinogen,Urine Normal (Normal)
[2019-06-04] MEDS ORDERED: Piperacillin/Tazobactam 3.375 GM in 0.9 % Sodium Chloride Mini Bag 100 ML IVPB ONE (02:33)
[2019-06-04 09:07] LABS: Hematocrit 36.2 % (37.5-50.1); Hemoglobin 12.1 g/dL (12.9-16.9); Mean Corpuscular HGB Conc 33.4 g/dL (31.6-35.5); Mean Corpuscular Hemoglobin 31.1 pg (28.0-33.3); Mean Corpuscular Volume 93.1 fL (83.0-100.0); Platelet Count 173 K/mcL (140-400); Red Blood Count 3.89 M/mcL (4.19-5.50); Red Cell Distribution Width 13.4 % (11.5-14.5)
[2019-06-04 09:30] LABS: Albumin 3.7 g/dL (3.5-5.7); Albumin/Globulin Ratio 1.1 (1.1-2.2); Calcium 8.7 mg/dL (8.6-10.3); Globulin 3.3 g/dL (2.4-3.5); Magnesium 1.9 mg/dL (1.6-2.6); Phosphorous 2.9 mg/dL (2.7-4.5); Potassium 4.3 mEq/L (3.5-5.1)
[2019-06-04] MEDS ORDERED: Naloxone 0.4 MG/ML INJ IVP PRN (09:57)
[2019-06-04] MEDS ORDERED: Ondansetron 4 MG/2 ML VIAL IVP PRN (09:57)
--- NOTE | 2019-06-04 10:06 | Internal Med History&Physical ---
Date of Encounter: 06/04/19 Time of Encounter: 10:01 Internal Medicine - H&P: HPI Chief complaint: rigor and fever 1 day duration Admitted From: Home History of present illness: Mr. Mcclain is a 83 year old male with past medical history of hypertension was admitted because of fever with rigors started yesterday, patient states that he has been outside working all the day shoveling gravel and then at about 8 PM started feeling cold with shivering, he went into the house to call or follow up for it was too cold, he denies sweating he called his daughter to come see him and Daughter took temperature at home and it was 101 F. Patient denied vomiting but reported nausea earlier yesterday, denies chest pain or shortness of breath, denies feeling dizzy or lightheaded, denies any change in bowel movements. by time of my assessment , the patient is sitting comfortably in bed denies any symptoms, looks alert and oriented denied headache or sore throat Was found to have mild acute kidney injury with serum creatinine 1.36, given IV fluid Chest x-ray nonacute , the patient received 1 dose of IV vancomycin and Zosyn in the ER Past Med Surg Social Fam HX - Past Medical History Medical history: arthritis, GERD, hypertension Additional medical history: Restless leg Psychiatric history: anxiety - Past Surgical History Surgical History: other Additional surgical history: Cataract sx, L shoulder total replacement - Social History Smoking Status: Never smoker Smokeless Tobacco Status: No Alcohol use: none Drug use: none - Family History Mother Living Status: Age at : 57 Cause of : [place] Hx Family Cardiac Disorders: Yes ([place]) Hx Family Psychosocial Disorders: Yes (Anxiety) Father Living Status: Cause of : Kidney failure Son Living Status: Cause of : Cancer Internal Medicine - H&P: Meds Lisinopril/Hydrochlorothiazide [Zestoretic 20-25 mg Tablet] 1 tab PO DAILY 07/15/18 [History] Cholecalciferol (Vitamin D3) [Vitamin D] 1,000 unit PO DAILY 04/13/19 [History] rOPINIRole [Requip] 0.25 mg PO HS 06/04/19 [History] Allergy/AdvReac Type Severity Reaction Status Date / Time No Known Allergies Allergy Verified 06/04/19 05:00 All Systems PM: A 10-system review of systems was performed and is negative for pertinent findings except as documented above in the HPI. Review of systems: Review of system: Regarding cardiology respiratory GI endocrine hematology musculoskeletal all neg ative except for multiple was mentioned in the H&P - Constitutional Vitals: Temp Pulse Resp BP Pulse Ox 97.5 F L 66 16 108/62 94 06/04/19 06:58 06/04/19 06:58 06/04/19 06:58 06/04/19 06:58 06/04/19 06:58 Exam: Physical examination: Gen.: Patient is alert and oriented, not in respiratory distress or pain HEENT: perrla , EOMI, no thyroid gland enlargement, no neck mass, supple neck Heart: S1 and S2 rufina, normal sinus rhythm, no cardiac murmur no gallop rhythm Chest: Air entry equal bilaterally, clear chest, no wheezing, crackles or crepitation Abdomen: Soft nontender nondistended positive bowel sounds, no organomegaly Extremities: No pitting edema, peripheral pulses palpable, no cyanosis tenderness Neuro: Able to move all 4 limbs, Internal Med - H&P Results - Labs CBC & Chem 7: 06/04/19 08:28 06/04/19 08:28 Labs: Short CBC 06/03/19 06/04/19 Range/Units 23:16 08:28 WBC 7.6 10.0 (4.3-11.1) K/mcL Hgb 11.9 L 12.1 L (12.9-16.9) g/dL Hct 35.9 L 36.2 L (37.5-50.1) % Plt Count 172 173 (140-400) K/mcL Neutrophils # 6.7 (1.6-8.9) K/mcL BMP 06/03/19 06/04/19 23:16 08:28 Sodium 135 L 137 Potassium 3.9 4.3 Chloride 105 106 Carbon Dioxide 22 L 25 BUN 24 H 20 Creatinine 1.36 H 1.42 H Glucose 127 H 102 Calcium 8.9 8.7 Liver Function 06/03/19 06/04/19 Range/Units 23:16 08:28 Total Bilirubin 0.8 1.0 (0.3-1.0) mg/dL Direct Bilirubin 0.1 (0.0-0.2) mg/dL AST 16 15 (13-39) Units/L ALT 15 14 (7-52) Units/L Alkaline Phosphatase 66 65 (34-104) Units/L Albumin 4.1 3.7 (3.5-5.7) g/dL Urine 06/04/19 Range/Units 00:29 Urine Color Yellow (Yellow) Urine Clarity Clear (Clear) Urine pH 7.0 (5.0-8.0) pH Units Ur Specific [place] 1.021 (1.010-1.025) Urine Protein Negative (Neg-Trace) mg/dL Urine Glucose (UA) Normal (Normal) mg/dL - Impressions ITS Impressions Chest X-Ray 06/03/19 22:51 IMPRESSION: Chronic pulmonary changes without focal airspace consolidation. D/ / Girish Heard / Girish Heard Interpreting Provider: Girish Heard - Assessment and Plan (1) OMAR (acute kidney injury) Current Visit: Yes Status: Acute Assessment and plan: Most likely prerenal secondary to dehydration Hold nephrotoxic medications and continue on IV fluid today morning serum creatinine up 1.4 Check postvoid bladder scan Monitor renal function and urine output (2) Fever Current Visit: Yes Status: Acute Assessment and plan: Could be secondary to heatstroke, otherwise unclear the source of fever Continue empirically on IV antibiotic Zosyn Follow blood culture Check serum progressed on an ESR and C-reactive protein and creatinine kinase Urinalysis is clean Chest x-ray clean Continue on IV fluids Continue other supportive therapy Her pressure stable Closely monitor hemodynamically Qualifiers: Fever type: unspecified Qualified Code(s): R50.9 - Fever, unspecified (3) HTN (hypertension) Current Visit: No Status: Chronic Assessment and plan: given soft BP, hold blood pressure medication Check orthostatic blood pressure Qualifiers: Hypertension type: unspecified Qualified Code(s): I10 - Essential (primary) hypertension - Time Spent With Patient Total time spent is greater than 50% in coordination of care (as documented) at patient's floor/unit and/or counseling patient:
[2019-06-04 10:13] LABS: C-Reactive Protein 35 mg/L (Less than 10); Creatine Kinase 234 Units/L (30-223)
[2019-06-04] MEDS: 0.9 % Sodium Chloride 1,000 ML IVC SCH (11:05)
[2019-06-04] MEDS: *HR* Heparin 5,000 UNIT/ML VIAL SQ SCH ×2 (14:47→20:10)
[2019-06-04] MEDS: Piperacillin/Tazobactam 3.375 GM in 0.9 % Sodium Chloride Mini Bag 100 ML IVPB SCH (14:48)
[2019-06-04] MEDS ORDERED: Acetaminophen 325 MG TABLET PO PRN (19:21)
[2019-06-04] MEDS: rOPINIRole 0.25 MG TABLET PO SCH (20:09)
[2019-06-05] MEDS: 0.9 % Sodium Chloride 1,000 ML IVC SCH (00:20)
[2019-06-05] MEDS: Piperacillin/Tazobactam 3.375 GM in 0.9 % Sodium Chloride Mini Bag 100 ML IVPB SCH ×2 (00:21→09:08)
[2019-06-05 04:11] LABS: Basophils % 0.2 %; Eosinophils # 0.1 K/mcL (0.0-0.6); Eosinophils % 1.2 %; Hematocrit 32.2 % (37.5-50.1); Hemoglobin 10.6 g/dL (12.9-16.9); Immature Granulocytes % 0.3 % (0-4); Lymphocytes # 1.2 K/mcL (0.6-4.6); Lymphocytes % 19.7 %; Mean Corpuscular HGB Conc 32.9 g/dL (31.6-35.5); Mean Corpuscular Hemoglobin 30.3 pg (28.0-33.3); Mean Platelet Volume 9.9 fL (9.4-12.4); Monocytes # 0.6 K/mcL (0.0-1.3); Monocytes % 9.8 %; Neutrophils # 4.1 K/mcL (1.6-8.9); Platelet Count 157 K/mcL (140-400); Red Cell Distribution Width 13.4 % (11.5-14.5); Segmented Neutrophils % 68.8 %; White Blood Count 5.9 K/mcL (4.3-11.1)
[2019-06-05 04:24] LABS: Albumin 3.2 g/dL (3.5-5.7); Albumin/Globulin Ratio 1.1 (1.1-2.2); Bilirubin,Total 0.5 mg/dL (0.3-1.0); Calcium 8.6 mg/dL (8.6-10.3); Potassium 4.2 mEq/L (3.5-5.1); Total Protein 6.2 g/dL (6.4-8.9)
[2019-06-05] MEDS: *HR* Heparin 5,000 UNIT/ML VIAL SQ SCH ×3 (05:16→21:24)
[2019-06-05] MEDS: Cholecalciferol (D-3) 1,000 UNIT (25MCG) TABLET PO SCH (09:07)
--- NOTE | 2019-06-05 09:27 | Internal Med Progress Note ---
Hospitalist Progress Note - Encounter Date of Encounter: 06/05/19 Time of Encounter: 09:23 - Subjective Interval History: the patient was seen and examined at bedside. feels well no fever last 24 hours, no leukocytosis Bc negative o far i will stop iv AB and watch closely denies cough, dysuria, diarrhea, Nausea or vomiting serum creatinine uo to 1.5 from 1.4 patient ahs hx of CKD stage 4 i discussed with patient and patient bonnie at bedside patient had Bone marrow biopsy recently and result still pending also has anemia - Exam Vitals: Temp Pulse Resp BP Pulse Ox 98.2 F 74 20 173/76 96 06/05/19 07:06 06/05/19 07:06 06/05/19 07:06 06/05/19 07:06 06/05/19 07:06 Exam: Physical examination: Gen.: Patient is alert and oriented, not in respiratory distress or pain HEENT: perrla , EOMI, no thyroid gland enlargement, no neck mass, supple neck Heart: S1 and S2 rufina, normal sinus rhythm, no cardiac murmur no gallop rhythm Chest: Air entry equal bilaterally, clear chest, no wheezing, crackles or crepitation Abdomen: Soft nontender nondistended positive bowel sounds, no organomegaly Extremities: No pitting edema, peripheral pulses palpable, no cyanosis tenderness Neuro: Able to move all 4 limbs, - Assessment and Plan (1) OMAR (acute kidney injury) Current Visit: Yes Status: Acute Assessment and Plan: (1) acute on CKD (acute kidney injury) Current Visit: Yes Status: Acute Assessment and plan: Most likely prerenal secondary to dehydration has stage 4 CKD baseline creatinine up to 1.[address] abdomen to r/o obstructive nephropathy check anotehr UA Hold nephrotoxic medications d/c iv fluid today morning serum creatinine up 1.5 Check postvoid bladder scan Monitor renal function and urine output (2) Fever Current Visit: Yes Status: Acute Assessment and plan: Could be secondary to heatstroke, otherwise unclear the source of fever no fever last 24 hours, no leukcytosis stop iv zosyn and closely watch Blood culture negative so far serum procal 0.7, CRP 35 Urinalysis is clean Chest x-ray clean Continue other supportive therapy Her pressure stable Closely monitor hemodynamically Qualifiers: Fever type: unspecified Qualified Code(s): R50.9 - Fever, unspecified (3) HTN (hypertension) Current Visit: No Status: Chronic Assessment and plan: BP start get up avoid JOSE MARIA due to OMAR start on amlodipine 5 mg daily Qualifiers: Hypertension type: unspecified Qualified Code(s): I10 - Essential (primary) hypertension 4- Anemia: Hb 10.6 has hx of anemia BM biopsy done recently , result pending could be MM? scheduled to have 24 hour urine protein analysis as outpatient as per daughter (2) Fever Current Visit: Yes Status: Acute (3) HTN (hypertension) Current Visit: No Status: Chronic DVT Prophylaxis: heparin - Time Spent with Patient Total time spent is greater than 50% in coordination of care (as documented) at patient's floor/unit and/or counseling patient: Internal Medicine: Result - Labs CBC & Chem 7: 06/05/19 03:30 06/05/19 03:30 Labs: Short CBC 06/05/19 Range/Units 03:30 WBC 5.9 (4.3-11.1) K/mcL Hgb 10.6 L D (12.9-16.9) g/dL Hct 32.2 L (37.5-50.1) % Plt Count 157 (140-400) K/mcL Neutrophils # 4.1 (1.6-8.9) K/mcL BMP 06/04/19 06/05/19 08:28 03:30 Sodium 137 138 Potassium 4.3 4.2 Chloride 106 106 Carbon Dioxide 25 23 BUN 20 21 Creatinine 1.42 H 1.55 H Glucose 102 109 H Calcium 8.7 8.6 Liver Function 06/04/19 06/05/19 Range/Units 08:28 03:30 Total Bilirubin 1.0 0.5 (0.3-1.0) mg/dL AST 15 12 L (13-39) Units/L ALT 14 11 (7-52) Units/L Alkaline Phosphatase 65 59 (34-104) Units/L Albumin 3.7 3.2 L (3.5-5.7) g/dL - ABG Interpretation ABG results: PT/INR, D-dimer PT 12.0 Seconds (9.4-12.1) 06/03/19 23:16 Consult Discharge Plan - Plan Referrals: Mark Harkins MD [Primary Care Provider] - (2) Fever Qualifiers: Fever type: unspecified Qualified Code(s): R50.9 - Fever, unspecified (3) HTN (hypertension) Qualifiers: Hypertension type: unspecified Qualified Code(s): I10 - Essential (primary) hypertension
[2019-06-05 09:55] LABS: Bilirubin,Urine Negative (Negative); Blood,Urine Negative (Negative); Clarity,Urine Clear (Clear); Color,Urine Yellow (Yellow); Glucose,Urine (UA) Normal (Normal); Ketones,Urine Negative (Negative); Leukocyte Esterase,Urine Negative (Negative); Nitrite,Urine Negative (Negative); PH,Urine 6.5 pH Units (5.0-8.0); Protein,Urine Negative (Neg-Trace); Specific Gravity,Urine 1.014 (1.010-1.025); Urobilinogen,Urine Normal (Normal)
--- NOTE | 2019-06-05 11:04 | Nephrology Consult Note ---
Date of Encounter: 06/05/19 Time of Encounter: 12:00 Assessment and Plan (1) OMAR (acute kidney injury) Current Visit: Yes Status: Acute Elevated Scr in the setting of volume depletion after a day outside rule out heatstroke and on lisinopril and HCTZ Agree with holding diuretic and ACEi for now Continue adequate fluid intake CPK noted slightly elevated and alreday improving. Will check uric acid levels Will check urine studies: sodium, creatinine and eosinophil. UA noted bland (2) Fever Current Visit: Yes Status: Acute Per primary team Qualifiers: Fever type: unspecified Qualified Code(s): R50.9 - Fever, unspecified (3) CKD (chronic kidney disease) stage 3, GFR 30-59 ml/min Current Visit: Yes Status: Acute Baseline GFR noted in the 50s History of Present Illness - Reason for Consult Consult date: 06/05/19 Acute Kidney Injury, Chronic Kidney Disease Requesting physician: Taz Zimmerman - History of Present Illness 83 y o male with PMH of GERD, HTN and arthritis admitted yesterday with fevers and chills after spending all day working outside. Pt also had nausea but no vomiting. SCr noted at 1.36, GFR 50 on presentation worsening to 1.55, GFR 43 with baseline noted at 1.3, GFR 53 as of february and 1.22, GFR 57 as of september. renal consulted as a result. Pt seen and examined Past Med Surg Social Fam HX - Past Medical History Medical history: arthritis, GERD, hypertension Additional medical history: Restless leg Psychiatric history: anxiety - Past Surgical History Surgical History: other Additional surgical history: Cataract sx, L shoulder total replacement - Social History Smoking Status: Never smoker Smokeless Tobacco Status: No Alcohol use: none Drug use: none - Family History Mother Living Status: Age at : 57 Cause of : [place] Hx Family Cardiac Disorders: Yes ([place]) Hx Family Psychosocial Disorders: Yes (Anxiety) Father Living Status: Cause of : Kidney failure Son Living Status: Cause of : Cancer Medications and Allergies Lisinopril/Hydrochlorothiazide [Zestoretic 20-25 mg Tablet] 1 tab PO DAILY 07/15/18 [History] Cholecalciferol (Vitamin D3) [Vitamin D] 1,000 unit PO DAILY 04/13/19 [History] rOPINIRole [Requip] 0.25 mg PO HS 06/04/19 [History] Allergy/AdvReac Type Severity Reaction Status Date / Time No Known Allergies Allergy Verified 06/04/19 05:00 Exam - Vital Signs Vital signs: Initial Vital Signs Temp Pulse Resp BP Pulse Ox 100.8 F H 107 16 159/72 96 06/03/19 22:20 06/03/19 22:20 06/03/19 22:20 06/03/19 22:20 06/03/19 22:20 Vital Signs - Last 8 Hours Temp Pulse Resp BP Pulse Ox 06/05/19 10:15 150/78 06/05/19 07:06 98.2 F 74 20 173/76 96 Intake and Output 06/04/19 06/05/19 06/05/19 23:59 07:59 15:59 Intake Total 100 / 2810 1100 / 1100 Output Total 420 / 420 400 / 400 Balance -320 / 2390 700 / 700 Intake: IV Fluids 100 / 2450 1100 / 1100 0.9 % Sodium Chloride 1,000 ML 1000 / 1000 @ 75 mls/hr IVC .[id number] [facility] Rx #:[id number] Zosyn 3.375 GM In 0.9 % Sodium 100 / 100 100 / 100 Chloride (Mini-Bag +) 100 ML @ 25 mls/hr IVPB Q8HR [facility] Rx#: [id number] Output: Urine 420 / 420 400 / 400 Other: Weight 74 kg Patient Weight 06/05/19 23:59 Weight 74 kg Results - Lab Results 06/05/19 03:30 06/05/19 03:30 Most recent lab results 06/05/19 03:30 Calcium 8.6 Consult Discharge Plan - Plan Referrals: Mark Harkins MD [Primary Care Provider] -
--- NOTE | 2019-06-05 11:41 | Electrocardiograph Report ---
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
[2019-06-05 11:43] LABS: Sodium, Urine 137.4 mEq/L
[2019-06-05] MEDS: amLODIPine 5 MG TABLET PO SCH (14:25)
[2019-06-05 15:29] LABS: % Iron Saturation 6 % (20-55); Iron 19 mcg/dL (65-175); Transferrin 219 mg/dL (203-362)
[2019-06-05] MEDS: rOPINIRole 0.25 MG TABLET PO SCH (21:17)
[2019-06-06 04:17] LABS: Basophils % 0.2 %; Eosinophils # 0.2 K/mcL (0.0-0.6); Eosinophils % 2.9 %; Hemoglobin 11.3 g/dL (12.9-16.9); Immature Granulocytes % 0.2 % (0-4); Lymphocytes # 1.4 K/mcL (0.6-4.6); Mean Corpuscular HGB Conc 33.2 g/dL (31.6-35.5); Mean Corpuscular Hemoglobin 30.1 pg (28.0-33.3); Mean Corpuscular Volume 90.7 fL (83.0-100.0); Mean Platelet Volume 9.8 fL (9.4-12.4); Monocytes # 0.7 K/mcL (0.0-1.3); Monocytes % 13.2 %; Neutrophils # 3.2 K/mcL (1.6-8.9); Platelet Count 180 K/mcL (140-400); Red Blood Count 3.75 M/mcL (4.19-5.50); Red Cell Distribution Width 13.2 % (11.5-14.5); Segmented Neutrophils % 57.5 %; White Blood Count 5.5 K/mcL (4.3-11.1)
[2019-06-06 04:35] LABS: Alanine Aminotransferase 14 Units/L (7-52); Albumin 3.7 g/dL (3.5-5.7); Albumin/Globulin Ratio 1.1 (1.1-2.2); Alkaline Phosphatase 54 Units/L (34-104); Aspartate Amino Transferase 13 Units/L (13-39); BUN/Creatinine Ratio 14 (6-26); Bilirubin,Total 0.4 mg/dL (0.3-1.0); Blood Urea Nitrogen 18 mg/dL (8-23); Calcium 8.9 mg/dL (8.6-10.3); Carbon Dioxide 23 mEq/L (23-29); Chloride 107 mEq/L (98-107); Globulin 3.4 g/dL (2.4-3.5); Glucose 102 mg/dL (70-105); Osmolality,Calculated 288 (280-300); Sodium 138 mEq/L (136-145); Total Protein 7.1 g/dL (6.4-8.9); eGFR For African Americans > 60 (> 60); eGFR For Non-African Americans 54 (> 60)
[2019-06-06] MEDS: *HR* Heparin 5,000 UNIT/ML VIAL SQ SCH (05:27)
[2019-06-06 07:06] VITALS: BP 170/88
[2019-06-06] MEDS: amLODIPine 5 MG TABLET PO SCH (07:16)
[2019-06-06] MEDS: Cholecalciferol (D-3) 1,000 UNIT (25MCG) TABLET PO SCH (07:18)
[2019-06-06] MEDS ORDERED: amLODIPine 5 MG TABLET PO SCH (09:00)
--- NOTE | 2019-06-06 10:29 | Infectious Disease Consult ---
Infectious Disease-Consult - Encounter Date/Time Date of Encounter: 06/06/19 Time of Encounter: 11:15 - Data of Consult Reason for consult: Fever Consult date: 06/06/19 Requesting Physician: Brcye Brito MD Primary Care Provider: Mark Harkins MD - HPI HPI: Mr Mcclain is an 83M who initially presented to [facility] with complaints of fever and rigors on 06/03/19. He was admitted for OMAR and fever that same day. The infectious disease team was consulted on 06/06/19 for fever. He has a PMH of HTN, GERD, arthritis, and MGUS. Prior to initial presentation on 06/03, the patient reports he was outside shoveling gravel outside that day. Reports at around 7-8pm that evening he began to feel cold and shiver. States he then went inside where these symptoms intensified. Reports calling his daughter, who then came to see the patient. The daughter took his temperature and it was reported to be 102 F. He subsequently came to the [facility] ED for further evaluation. The patient did admit to some concomitant nausea, but denied any recent illnesses, chest pain, shortness of breath, cough, increased sputum production, vertigo, lightheadedness, dysuria, abdominal pain, constipation, or diarrhea. Vital signs in the ED revealed elevated temperature at 100.8, tachycardia of 107bpm, and tachypnea of 21. Blood pressure has remained stable throughout his presentation and admission. Labs showed no leukocytosis with WBC of 7.6, with no left shift, and normal lactic acid of 0.6. Serum creatinine was elevated at 1.36, and creatine kinase was elevated at 250. CXR in the ED showed chronic pulmonary changes without focal airspace consolidation. He was given 1L IV fluids in the ED, along with IV vancomycin and Zosyn. He was admitted for OMAR and fever. During this admission, pt has remained afebrile since initial temp elevation. Tachypnea and tachycardia have both resolved. BP remains stable and elevated with most recent of 170/88. He continues to have no leukocytosis, with no left shift on daily labs. Serum creatinine did continue to rise with max of 1.55 yesterday, but is normal today at 1.28. Creatine kinase decreased to 234 from inital 250. CRP was elevated at 35 as checked on 06/04, and procalcitonin was elevated at 0.79 that same day. Urinalysis was negative x2. A CT of the abdomen and pelvis was obtained on 06/05 for OMAR, r/o obstruction, which showed "No acute findings to account for patient's symptoms". Pt seen and examined at bedside this morning. Pt reports he is anxious to go home. States he did not sleep well last night as staff kept waking him up for various reasons. Denies any new or acute complaints at this time. He does report having a bone marrow biopsy last month (04/29/19). This was performed per heme/onc recommendations for patient's MGUS. - ROS Review of Systems: All systems reviewed and no additional remarkable complaints except as stated in the HPI. - Results CBC & Chem 7: 06/06/19 03:55 06/06/19 03:55 - Exam Vitals: Temp Pulse Resp BP Pulse Ox 98.2 F 79 16 170/88 97 06/06/19 07:03 06/06/19 07:03 06/06/19 07:03 06/06/19 07:03 06/06/19 07:30 Exam: Constitutional: Elderly male in no acute distress Head: Normocephalic, atraumatic Eyes: PERRL, EOMI, conjunctiva pink, sclera anicteric Neck: Trachea midline, no lymphadenopathy Lungs: Clear to auscultation bilaterally. Nonlabored breathing. No wheezes, rales, or rhonchi noted. Cardiac: RRR. +s1 +S2 No murmurs, clicks, or rubs noted. GI: Abdomen soft, nontender, nondistended. Extremities: Warm, radial pulses palpable and symmetrical. No cyanosis, pedal edema, or calf tenderness. Neuro: Alert and oriented 3. No focal deficits. Normal speech. Skin: Warm, dry, and intact. Lisinopril/Hydrochlorothiazide [Zestoretic 20-25 mg Tablet] 1 tab PO QAM 07/15/18 [History] Cholecalciferol (Vitamin D3) [Vitamin D3] 2,000 unit PO QAM 06/05/19 [History] Pramipexole [Mirapex] 0.25 mg PO HS 06/05/19 [History] Vitamin E 1 appl TP 2XW 06/05/19 [History] Allergy/AdvReac Type Severity Reaction Status Date / Time No Known Allergies Allergy Verified 06/05/19 16:41 - Assessment and Plan (1) Fever Status: Acute presented with elevated temperature of 100.8F Reports temp at home prior to presentation was 102F No further temperature elevations during admission No leukocytosis with no left shift throughout hospital admission Received empiric abx of IV Vanc and Zosyn while in the ED CXR showed chronic pulmonary changes without focal consolidation CT abdomen/pelvis showed "no findings to account for patient's symptoms" when obtained for OMAR r/o obstruction UA x2 unremarkable Blood cultures x2 from 06/04 with no growth to date With all of the above workup, no source of possible infection identified. Pt also continued to improve after only receiving abx while in ED. Given the overall clinical pictures, suspect the patient's initial fever was 2/2 heat stroke. Of note patient left the hospital of his own accord prior to evaluation by Dr Truong. Qualifiers: Fever type: unspecified Qualified Code(s): R50.9 - Fever, unspecified SNOMED Code(s): 291096384 (2) HTN (hypertension) Status: Chronic Pt has hx. Home meds of Lisinopril/HCTZ 20-25 daily This medication was held with OMAR during admission Qualifiers: Hypertension type: unspecified Qualified Code(s): I10 - Essential (primary) hypertension SNOMED Code(s): 62832509 (3) OMAR (acute kidney injury) Status: Resolved Serum creatinine 1.36 -> 1.42 -> 1.55 ->1.28 Resolved today Received a total of 3L IV fluids during admission Home lisinopril/HCTZ held during admission as above Nephrology consulted SNOMED Code(s): 30870130, 49291883 Past Med Surg Social Fam HX - Past Medical History Medical history: arthritis, GERD, hypertension Additional medical history: Restless leg Psychiatric history: anxiety - Past Surgical History Surgical History: other Additional surgical history: Cataract sx, L shoulder total replacement - Social History Smoking Status: Never smoker Smokeless Tobacco Status: No Alcohol use: none Drug use: none - Family History Mother Living Status: Age at : 57 Cause of : OR Hx Family Cardiac Disorders: Yes (OR) Hx Family Psychosocial Disorders: Yes (Anxiety) Father Living Status: Cause of : Kidney failure Son Living Status: Cause of : Cancer Consult Discharge Plan - Plan Referrals: Mark Harkins MD [Primary Care Provider] - (Appt has been requested) - Attending Attestation I examined this patient and my medical decision-making was reviewed with the Resident Physician. I agree with the documented findings, disposition and treatment plan as described except to the extent set forth below. Patient signed out AMA and just left the premises before I had a chance to evaluate him.
--- NOTE | 2019-06-06 11:00 | Discharge Summary ---
Orders not resulted at time of discharge: Pending orders 06/04/19 02:10 Culture,Blood [BC] Stat 06/04/19 14:32 Drug Screen, Serum [Drug Screen 9 Reflex Conf Qnt] Routine Date of Encounter: 06/06/19 Time of Encounter: 10:57 - Discharge Diagnosis (1) OMAR (acute kidney injury) Priority: Secondary Status: Resolved Assessment and Plan: resolved back to baseline (2) Fever Priority: Primary Status: Acute Assessment and Plan: most likley 2/2 to heat stroke work up for sepsis negative BC negaitve no fever last 24 hours off AB BP stable Qualifiers: Fever type: unspecified Qualified Code(s): R50.9 - Fever, unspecified (3) HTN (hypertension) Priority: Secondary Status: Chronic Qualifiers: Hypertension type: unspecified Qualified Code(s): I10 - Essential (primary) hypertension Hospital course: Mr. Mcclain is a 83 year old male with history of chronic kidney disease and hypertension was admitted because of fever with right got started after heavy work outside the house, patient initially was started on broad-spectrum antibiotics however all workup for sepsis negative including negative chest x- ray negative urinalysis and blood culture negative so far after 48 hours, IV antibiotic was stopped on the patient observed overnight for 24 hours without developing fever. Also the patient presents with acute kidney injury would or secondary to poor oral intake and dehydration was corrected on IV fluid. Also ID consulted and the patient will be discharged home after ID clearance Patient instructed I advised to return to the ER if develops fever or any other abnormal symptoms like severe weakness - Time Spent with Patient Total time spent providing and/or coordinating discharge services: 33 min - Discharge Medications Prescriptions: Continued Lisinopril/Hydrochlorothiazide [Zestoretic 20-25 mg Tablet] 1 tab PO QAM Cholecalciferol (Vitamin D3) [Vitamin D3] 2,000 unit PO QAM Pramipexole [Mirapex] 0.25 mg PO HS Vitamin E 1 appl TP 2XW Discontinued Diclofenac Sodium 1 appl TP TID PRN PRN Reason: Pain Naproxen Sodium [Aleve] 440 mg PO Q12H PRN PRN Reason: Pain Home Medications: Lisinopril/Hydrochlorothiazide [Zestoretic 20-25 mg Tablet] 1 tab PO QAM 07/15/18 [History] Cholecalciferol (Vitamin D3) [Vitamin D3] 2,000 unit PO QAM 06/05/19 [History] Pramipexole [Mirapex] 0.25 mg PO HS 06/05/19 [History] Vitamin E 1 appl TP 2XW 06/05/19 [History] Allergies/Adverse Reactions: Allergy/AdvReac Type Severity Reaction Status Date / Time No Known Allergies Allergy Verified 06/05/19 16:41 Date of admission: 06/04/19 02:40 Primary care physician: Mark Harkins MD Consults: 06/05/19 08:06 Consult to Nephrology [CONS] Routine Consulting Provider: Kidney Nancy/CHERYL/SAE/LYUBOV Reason for Consult: OMAR Call Completed: No 06/06/19 10:00 Consult to Infectious Diseases [CONS] Routine Consulting Provider: Infectious Disease Nancy Reason for Consult: fever Call Completed: Yes - Constitutional Vitals: Temp Pulse Resp BP Pulse Ox 98.2 F 79 16 170/88 97 06/06/19 07:03 06/06/19 07:03 06/06/19 07:03 06/06/19 07:03 06/06/19 07:30 Exam: Physical examination: Gen.: Patient is alert and oriented, not in respiratory distress or pain HEENT: perrla , EOMI, no thyroid gland enlargement, no neck mass, supple neck Heart: S1 and S2 rufina, normal sinus rhythm, no cardiac murmur no gallop rhythm Chest: Air entry equal bilaterally, clear chest, no wheezing, crackles or crepitation Abdomen: Soft nontender nondistended positive bowel sounds, no organomegaly Extremities: No pitting edema, peripheral pulses palpable, no cyanosis tenderness Neuro: Able to move all 4 limbs, - Patient Status Disposition: Home, Self-Care Condition: Fair - Discharge Instructions Follow Up With: Mark Harkins MD [Primary Care Provider] - (Appt has been requested)
[2019-06-07 14:57] LABS: Amphetamines NEGATIVE ng/mL (Cutoff 30); Barbiturates NEGATIVE ng/mL (Cutoff 75); Benzodiazepines NEGATIVE ng/mL (Cutoff 75); Buprenorphine NEGATIVE ng/mL (Cutoff 1); Cocaine NEGATIVE ng/mL (Cutoff 30); Methadone NEGATIVE ng/mL (Cutoff 40); Methamphetamines NEGATIVE ng/mL (Cutoff 30); Opiates NEGATIVE ng/mL (Cutoff 30); Phencyclidine NEGATIVE ng/mL (Cutoff 15)
== END 2019-06-06 13:52 | disposition left against medical advice (07) ==
LOC: 3BNU 22:18 → EMEROOARM 22:18 → 3BNU 06-04 04:45
PROVIDERS: ADMIT Pediatrics; ATTEND Pediatrics

== ENCOUNTER 2021-05-13 10:07 | Observation (INO) ==
[2021-05-13] MEDS ORDERED: Nitroglycerin 0.4 MG TAB.SUBL SL PRN (10:28)
[2021-05-13 11:10] LABS: Basophils % 0.4 %; Eosinophils # 0.1 K/mcL (0.0-0.6); Eosinophils % 1.3 %; Hemoglobin 12.8 g/dL (12.9-16.9); Immature Granulocytes % 0.2 % (0-4); Lymphocytes # 1.2 K/mcL (0.6-4.6); Lymphocytes % 27.6 %; Mean Corpuscular HGB Conc 32.8 g/dL (31.6-35.5); Mean Corpuscular Hemoglobin 30.6 pg (28.0-33.3); Mean Corpuscular Volume 93.3 fL (83.0-100.0); Mean Platelet Volume 9.7 fL (9.4-12.4); Monocytes # 0.4 K/mcL (0.0-1.3); Monocytes % 7.9 %; Neutrophils # 2.8 K/mcL (1.6-8.9); Platelet Count 196 K/mcL (140-400); Red Blood Count 4.18 M/mcL (4.19-5.50); Red Cell Distribution Width 13.1 % (11.5-14.5); Segmented Neutrophils % 62.6 %; White Blood Count 4.5 K/mcL (4.3-11.1)
[2021-05-13 11:33] LABS: BUN/Creatinine Ratio 22 (6-26); Blood Urea Nitrogen 36 mg/dL (8-23); Calcium 9.2 mg/dL (8.6-10.3); Carbon Dioxide 22 mEq/L (23-29); Chloride 106 mEq/L (98-107); Glucose 120 mg/dL (70-105); Osmolality,Calculated 296 (280-300); Potassium 4.3 mEq/L (3.5-5.1); Sodium 138 mEq/L (136-145); eGFR For African Americans 50 (> 60); eGFR For Non-African Americans 41 (> 60)
[2021-05-13 11:40] LABS: Troponin I < 0.03 ng/mL (< 0.04)
[2021-05-13] MEDS ORDERED: Naloxone 0.4 MG/ML INJ IVP PRN (13:33)
[2021-05-13] MEDS ORDERED: Aspirin 325 MG TABLET PO ONE (13:35)
[2021-05-13] MEDS ORDERED: Acetaminophen 325 MG TABLET PO PRN (14:46)
[2021-05-13] MEDS: 0.9 % Sodium Chloride 1,000 ML IVC SCH (15:07)
[2021-05-13] MEDS ORDERED: *HR* Heparin 5,000 UNIT/ML VIAL SQ SCH (18:00)
[2021-05-13] MEDS ORDERED: *HR* Heparin 5,000 UNIT/ML VIAL IVP PRN ×2 (18:04)
[2021-05-13] MEDS ORDERED: Perflutren Lipid Microsphere 1.3 ML in 0.9 % Sodium Chloride 8.7 ML IVP PRN (18:07)
[2021-05-13] MEDS ORDERED: Heparin 25,000UNIT/250ML 1/2NS 25,000 UNIT/250 ML IV.SOLN IVC SCH (18:15)
[2021-05-13 21:39] LABS: Hematocrit 36.8 % (37.5-50.1); Hemoglobin 12.4 g/dL (12.9-16.9); Mean Corpuscular HGB Conc 33.7 g/dL (31.6-35.5); Mean Corpuscular Hemoglobin 31.3 pg (28.0-33.3); Mean Corpuscular Volume 92.9 fL (83.0-100.0); Platelet Count 202 K/mcL (140-400); Red Blood Count 3.96 M/mcL (4.19-5.50); Red Cell Distribution Width 12.8 % (11.5-14.5); White Blood Count 5.1 K/mcL (4.3-11.1)
[2021-05-13 21:43] LABS: Heparin anti-factor XA UFH 0.18 IU/mL (0.30-0.70); Prothrombin Time 11.7 Seconds (9.4-12.1)
[2021-05-14 02:21] LABS: Calcium 8.9 mg/dL (8.6-10.3); Chol/HDL Ratio 3.8 (0-4.9); Magnesium 1.9 mg/dL (1.6-2.6); Phosphorous 3.3 mg/dL (2.7-4.5); Potassium 4.3 mEq/L (3.5-5.1)
[2021-05-14] MEDS: 0.9 % Sodium Chloride 1,000 ML IVC SCH (05:26)
[2021-05-14] MEDS ORDERED: Aspirin 81 MG TAB.CHEW PO SCH (09:00)
[2021-05-14 09:12] LABS: Basophils % 0.6 %; Eosinophils # 0.1 K/mcL (0.0-0.6); Eosinophils % 1.8 %; Hematocrit 39.5 % (37.5-50.1); Hemoglobin 13.1 g/dL (12.9-16.9); Immature Granulocytes % 0.4 % (0-4); Lymphocytes # 1.2 K/mcL (0.6-4.6); Lymphocytes % 24.7 %; Mean Corpuscular HGB Conc 33.2 g/dL (31.6-35.5); Mean Corpuscular Volume 93.4 fL (83.0-100.0); Mean Platelet Volume 9.7 fL (9.4-12.4); Monocytes # 0.4 K/mcL (0.0-1.3); Monocytes % 7.2 %; Neutrophils # 3.3 K/mcL (1.6-8.9); Platelet Count 202 K/mcL (140-400); Red Blood Count 4.23 M/mcL (4.19-5.50); Segmented Neutrophils % 65.3 %
[2021-05-14] MEDS ORDERED: 0.9 % Sodium Chloride 1,000 ML ONE ×2 (10:59→11:00)
[2021-05-14] MEDS ORDERED: Heparin 1,000 UNITS/500 mL 500 ML ONE (11:00)
[2021-05-14] MEDS ORDERED: *HR* Heparin 10,000 UNIT/10 ML VIAL ONE (11:00)
[2021-05-14] MEDS ORDERED: ISOVUE-370 200 ML INFUS..BTL ONE (11:00)
[2021-05-14] MEDS ORDERED: Nitroglycerin 1,000 MCG/5 ML VIAL IV ONE (11:00)
[2021-05-14] MEDS ORDERED: *HR* FentaNYL (PF) 100 MCG/2 ML VIAL ONE (11:13)
[2021-05-14] MEDS ORDERED: *HR* Midazolam HCl 2 MG/2 ML VIAL ONE (11:13)
[2021-05-14 13:12] VITALS: BP 144/81
[2021-05-14] MEDS ORDERED: carvediloL 6.25 MG TABLET PO SCH (17:00)
[2021-05-14 17:55] LABS: Estimated Average Glucose 117 mg/dl; Hemoglobin A1C 5.7 %
[2021-05-15] MEDS ORDERED: Cholecalciferol (D-3) 1,000 UNIT (25MCG) TABLET PO SCH (09:00)
[2021-05-15] MEDS ORDERED: Cyanocobalamin (B-12) 1,000 MCG TABLET PO SCH (09:00)
== END 2021-05-14 17:43 | disposition short-term general hospital (02) ==
LOC: EMEROOARM 10:07 → 2ANU 10:07
PROVIDERS: ADMIT Internal Medicine; ATTEND Internal Medicine

== ENCOUNTER 2021-06-23 21:04 | Observation (INO) ==
[2021-06-23 21:54] LABS: Basophils % 0.5 %; Eosinophils # 0.1 K/mcL (0.0-0.6); Eosinophils % 2.9 %; Hematocrit 34.2 % (37.5-50.1); Hemoglobin 11.4 g/dL (12.9-16.9); Immature Granulocytes % 0.2 % (0-4); Lymphocytes # 1.6 K/mcL (0.6-4.6); Mean Corpuscular HGB Conc 33.3 g/dL (31.6-35.5); Mean Corpuscular Hemoglobin 30.7 pg (28.0-33.3); Mean Corpuscular Volume 92.2 fL (83.0-100.0); Mean Platelet Volume 9.3 fL (9.4-12.4); Monocytes # 0.5 K/mcL (0.0-1.3); Neutrophils # 1.9 K/mcL (1.6-8.9); Platelet Count 170 K/mcL (140-400); Red Blood Count 3.71 M/mcL (4.19-5.50); Segmented Neutrophils % 46.4 %; White Blood Count 4.2 K/mcL (4.3-11.1)
[2021-06-23] MEDS ORDERED: Aspirin 81 MG TAB.CHEW PO ONE (22:05)
[2021-06-23 22:19] LABS: BUN/Creatinine Ratio 16 (6-26); Blood Urea Nitrogen 20 mg/dL (8-23); Calcium 8.8 mg/dL (8.6-10.3); Carbon Dioxide 23 mEq/L (23-29); Chloride 109 mEq/L (98-107); Glucose 110 mg/dL (70-105); Osmolality,Calculated 291 (280-300); Potassium 4.3 mEq/L (3.5-5.1); Sodium 139 mEq/L (136-145); eGFR For African Americans > 60 (> 60); eGFR For Non-African Americans 56 (> 60)
[2021-06-23] MEDS: Nitroglycerin 0.4 MG TAB.SUBL SL SCH (22:22)
[2021-06-23 22:27] LABS: Troponin I < 0.03 ng/mL (< 0.04)
[2021-06-23] MEDS ORDERED: Nitroglycerin 0.4 MG TAB.SUBL SL PRN (23:58)
[2021-06-24] MEDS ORDERED: Naloxone 0.4 MG/ML INJ IVP PRN (00:03)
[2021-06-24] MEDS ORDERED: Acetaminophen 325 MG TABLET PO PRN (00:03)
[2021-06-24] MEDS ORDERED: Ondansetron 4 MG/2 ML VIAL IVP PRN (00:03)
[2021-06-24] MEDS: Morphine Sulfate 2 MG/ML SYRINGE IVP PRN ×2 (00:29→04:47)
[2021-06-24] MEDS: Nitroglycerin 0.4 MG TAB.SUBL SL SCH (01:06)
[2021-06-24 01:17] LABS: Hematocrit 33.8 % (37.5-50.1); Hemoglobin 11.4 g/dL (12.9-16.9); Mean Corpuscular HGB Conc 33.7 g/dL (31.6-35.5); Mean Corpuscular Volume 91.8 fL (83.0-100.0); Mean Platelet Volume 9.6 fL (9.4-12.4); Platelet Count 172 K/mcL (140-400); Red Blood Count 3.68 M/mcL (4.19-5.50); White Blood Count 4.6 K/mcL (4.3-11.1)
[2021-06-24 01:28] LABS: Prothrombin Time 11.9 Seconds (9.4-12.1)
[2021-06-24 01:30] LABS: Activated Partial Thrombo Time 29.9 Seconds (26.0-36.0)
[2021-06-24 01:40] LABS: BUN/Creatinine Ratio 18 (6-26); Blood Urea Nitrogen 21 mg/dL (8-23); Calcium 8.8 mg/dL (8.6-10.3); Carbon Dioxide 22 mEq/L (23-29); Chloride 108 mEq/L (98-107); Chol/HDL Ratio 2.1 (0-4.9); Cholesterol 92 mg/dL (< 200); Glucose 92 mg/dL (70-105); HDL Cholesterol 43 mg/dL (40-59); LDL Cholesterol,Calculated 20 mg/dL (< 100); Osmolality,Calculated 289 (280-300); Potassium 4.4 mEq/L (3.5-5.1); Sodium 138 mEq/L (136-145); Triglycerides 143 mg/dL (< 150); Troponin I < 0.03 ng/mL (< 0.04); eGFR For African Americans > 60 (> 60); eGFR For Non-African Americans 59 (> 60)
[2021-06-24 02:03] LABS: Folate 13.1 ng/mL (3.0-16.0)
[2021-06-24 02:14] LABS: Thyroid Stimulating Hormone 1.407 mcIU/mL (0.340-5.600)
[2021-06-24 04:55] LABS: Estimated Average Glucose 117 mg/dl; Hemoglobin A1C 5.7 %
[2021-06-24] MEDS: *HR* Heparin 5,000 UNIT/ML VIAL SQ SCH ×2 (06:48→15:09)
[2021-06-24] MEDS ORDERED: Cyanocobalamin (B-12) 1,000 MCG TABLET PO SCH (09:00)
[2021-06-24] MEDS ORDERED: Aspirin Enteric Coated 81 MG Tablet PO SCH (09:00)
[2021-06-24] MEDS ORDERED: Cholecalciferol (D-3) 1,000 UNIT (25MCG) TABLET PO SCH (09:00)
[2021-06-24] MEDS ORDERED: Famotidine 20 MG TABLET PO SCH (09:00)
[2021-06-24] MEDS ORDERED: Perflutren Lipid Microsphere 1.3 ML in 0.9 % Sodium Chloride 8.7 ML IVP PRN (09:24)
[2021-06-24 10:38] VITALS: O2SAT 98
[2021-06-24 13:00] LABS: Bilirubin,Urine Negative (Negative); Blood,Urine Negative (Negative); Clarity,Urine Clear (Clear); Color,Urine Light-Yellow (Yellow); Glucose,Urine (UA) Normal (Normal); Ketones,Urine Negative (Negative); Leukocyte Esterase,Urine Negative (Negative); Nitrite,Urine Negative (Negative); Protein,Urine Trace mg/dL (Neg-Trace); Urobilinogen,Urine Normal (Normal)
[2021-06-24 15:22] VITALS: BP 168/75; PULSE 52; TEMP 97.3
[2021-06-24] MEDS ORDERED: carvediloL 6.25 MG TABLET PO SCH (17:00)
[2021-06-25] MEDS ORDERED: Famotidine 20 MG TABLET PO SCH (09:00)
== END 2021-06-24 17:04 | disposition home or self-care (01) ==
LOC: EMEROOARM 21:04 → 3ANU 21:04
PROVIDERS: ADMIT Student in an Organized Health Care Education/Training Program; ATTEND Student in an Organized Health Care Education/Training Program